=== PATIENT | male | born 1965 | race Caucasian/White ===

== ENCOUNTER 2022-02-01 11:22 | Emergency (ER) | payer OTHER ==
[~2022-02-01] VITALS: Ht 177.8 cm; Wt 95.2 kg
[2022-02-01 14:25] LABS: BASOPHILS ABSOLUTE AUTO 0.12 K/mm3 (0.00-0.23); BASOPHILS PERCENT AUTO 1 % (0-2); Hematocrit 43.1 % (37.0-53.0); LYMPHOCYTES ABSOLUTE AUTO 2.11 K/mm3 (0.84-5.20)
[2022-02-01 14:34] LABS: Albumin, Blood 3.1 g/dL (3.4-5.0); Albumin/Globulin Ratio 0.9 (0.8-1.8); Bilirubin, Total 0.6 mg/dL (0.1-1.0); Bun/Creatinine Ratio 9.8 (12.0-20.0); Calcium, Blood 8.9 mg/dL (8.5-10.1); Creatinine, Blood 0.92 mg/dL (0.60-1.20); Globulin, Blood 3.4 g/dL (2.2-4.0); Potassium, Blood 4.6 mmol/L (3.5-5.5); Total Protein, Blood 6.5 g/dL (6.4-8.2)
[2022-02-01 14:35] LABS: EOSINOPHILS ABSOLUTE AUTO 0.22 K/mm3 (0.00-0.68); EOSINOPHILS PERCENT AUTO 3 % (0-6); Hemoglobin 14.9 g/dL (13.5-17.5); IMMATURE GRAN ABSOLUTE AUTO 0.04 K/mm3 (0.00-0.10); IMMATURE GRAN PERCENT AUTO 1 % (0-1); LYMPHOCYTES PERCENT AUTO 24 % (21-46); MONOCYTES PERCENT AUTO 8 % (4-13); Mean Corpuscular HGB 31.2 pg (26.0-34.0); Mean Corpuscular HGB Conc 34.6 g/dL (31.5-36.5); Mean Corpuscular Volume 90 fL (80-100); NEUTROPHILS ABSOLUTE AUTO 5.46 K/mm3 (1.96-9.15); NEUTROPHILS PERCENT AUTO 63 % (41-73); RDW Coefficient Variation 13.8 % (11.7-14.2); RDW Standard Deviation 45.6 fL (35.1-46.3); Red Blood Cell Count 4.78 M/mm3 (4.30-5.90); White Blood Cell Count 8.65 K/mm3 (4.00-11.30)
[2022-02-01 15:10] LABS: Mean Platelet Volume 10.5 fL (9.1-12.4); Platelet Count 263 K/mm3 (150-400)
[2022-02-01 16:08] LABS: International Normalized Ratio 1.03; Prothrombin Time Results 10.8 Sec (9.7-11.5)
[2022-02-01] MEDS ORDERED: HYDR1TAB94 PO (16:56)
[2022-02-01 17:14] LABS: Influenza A, PCR NEGATIVE (NEGATIVE); Influenza B, PCR NEGATIVE (NEGATIVE); Resp Syncytial Virus, PCR NEGATIVE (NEGATIVE); SARS-Cov-2 (COVID-19) PCR, MMC NEGATIVE (NEGATIVE)
== END 2022-02-01 17:59 | disposition home or self-care (01) ==
LOC: ER 11:22
PROVIDERS: Physician Assistant; Student in an Organized Health Care Education/Training Program
DX: I82.411 Acute embolism and thrombosis of right femoral vein (principal); I71.43 Infrarenal abdominal aortic aneurysm, without rupture; E78.00 Pure hypercholesterolemia, unspecified; I10 Essential (primary) hypertension; Z87.891 Personal history of nicotine dependence
CPT/HCPCS: 0241U; 75635; 80053; 85025; 85610; 93971; J3010; Q9967

== ENCOUNTER 2022-03-18 13:55 | Emergency (ER) | payer OTHER ==
[~2022-03-18] VITALS: Ht 177.8 cm; Wt 94.3 kg
[~2022-03-18 13:55] MED LIST: HYDR1TAB94 PO
[2022-03-18] MEDS ORDERED: OXYC5 PO (15:16)
[2022-03-18] MEDS ORDERED: Aspir 8181 MG PO (15:16)
[2022-03-18] MEDS ORDERED: TRAM50 PO (15:16)
[2022-03-18] MEDS ORDERED: CLOP75 PO (15:16)
== END 2022-03-18 16:30 | disposition home or self-care (01) ==
LOC: ER 13:55
DX: Z48.03 Encounter for change or removal of drains (principal); I10 Essential (primary) hypertension; Z79.82 Long term (current) use of aspirin; Z79.899 Other long term (current) drug therapy; Z95.1 Presence of aortocoronary bypass graft; Z87.891 Personal history of nicotine dependence
CPT/HCPCS: 99282

== ENCOUNTER 2022-03-24 01:20 | Day surgery (SDC) | payer OTHER ==
[~2022-03-24 01:20] MED LIST changes: +Aspir 8181 MG PO; +CLOP75 PO; +OXYC5 PO; +TRAM50 PO
== END 2022-03-25 23:30 | disposition home or self-care (01) ==
LOC: WOUND 01:20
DX: T81.89XA Other complications of procedures, not elsewhere classified, initial encounter (principal); I73.9 Peripheral vascular disease, unspecified; I25.10 Atherosclerotic heart disease of native coronary artery without angina pectoris; D50.0 Iron deficiency anemia secondary to blood loss (chronic); M79.A21 Nontraumatic compartment syndrome of right lower extremity
CPT/HCPCS: G0463

== ENCOUNTER 2022-03-27 00:48 | Day surgery (SDC) | payer OTHER | END 2022-03-27 23:05 | disposition home or self-care (01) | LOC: WOUND 00:48 | DX: I73.9 Peripheral vascular disease, unspecified (principal); I25.10 Atherosclerotic heart disease of native coronary artery without angina pectoris; M79.A21 Nontraumatic compartment syndrome of right lower extremity; D50.0 Iron deficiency anemia secondary to blood loss (chronic) ==

== ENCOUNTER 2022-03-29 00:55 | Day surgery (SDC) | payer OTHER | END 2022-03-29 22:41 | disposition home or self-care (01) | LOC: WOUND 00:55 | DX: I73.9 Peripheral vascular disease, unspecified (principal); I25.10 Atherosclerotic heart disease of native coronary artery without angina pectoris; M79.A21 Nontraumatic compartment syndrome of right lower extremity; D50.0 Iron deficiency anemia secondary to blood loss (chronic) | CPT/HCPCS: A9270 ==

== ENCOUNTER 2022-03-31 00:16 | Day surgery (SDC) | payer OTHER | END 2022-03-31 23:29 | disposition home or self-care (01) | LOC: WOUND 00:16 | DX: S81.801A Unspecified open wound, right lower leg, initial encounter (principal); T81.31XS Disruption of external operation (surgical) wound, not elsewhere classified, sequela; I25.10 Atherosclerotic heart disease of native coronary artery without angina pectoris; M79.A21 Nontraumatic compartment syndrome of right lower extremity; D50.0 Iron deficiency anemia secondary to blood loss (chronic); I87.2 Venous insufficiency (chronic) (peripheral); R77.0 Abnormality of albumin; I73.9 Peripheral vascular disease, unspecified | CPT/HCPCS: A9270 ==

== ENCOUNTER 2022-04-03 09:13 | Day surgery (SDC) | payer OTHER | END 2022-04-03 22:45 | disposition home or self-care (01) | LOC: WOUND 09:13 | DX: I73.9 Peripheral vascular disease, unspecified (principal); I25.10 Atherosclerotic heart disease of native coronary artery without angina pectoris; M79.A21 Nontraumatic compartment syndrome of right lower extremity; D50.0 Iron deficiency anemia secondary to blood loss (chronic); I87.2 Venous insufficiency (chronic) (peripheral); T81.31XS Disruption of external operation (surgical) wound, not elsewhere classified, sequela; S81.801S Unspecified open wound, right lower leg, sequela | CPT/HCPCS: A9270; G0463 ==

== ENCOUNTER 2022-04-05 00:33 | Day surgery (SDC) | payer OTHER | END 2022-04-05 23:07 | disposition home or self-care (01) | LOC: WOUND 00:33 | DX: I73.9 Peripheral vascular disease, unspecified (principal); I25.10 Atherosclerotic heart disease of native coronary artery without angina pectoris; M79.A21 Nontraumatic compartment syndrome of right lower extremity; D50.0 Iron deficiency anemia secondary to blood loss (chronic); T81.31XS Disruption of external operation (surgical) wound, not elsewhere classified, sequela; I87.2 Venous insufficiency (chronic) (peripheral); S81.801S Unspecified open wound, right lower leg, sequela | CPT/HCPCS: A9270; G0463 ==

== ENCOUNTER 2022-04-12 03:50 | Day surgery (SDC) | payer OTHER | END 2022-04-12 23:05 | disposition home or self-care (01) | LOC: WOUND 03:50 | DX: S81.801S Unspecified open wound, right lower leg, sequela (principal); I73.9 Peripheral vascular disease, unspecified; I25.10 Atherosclerotic heart disease of native coronary artery without angina pectoris; M79.A21 Nontraumatic compartment syndrome of right lower extremity; D50.0 Iron deficiency anemia secondary to blood loss (chronic); T81.31XS Disruption of external operation (surgical) wound, not elsewhere classified, sequela; I87.2 Venous insufficiency (chronic) (peripheral); R77.0 Abnormality of albumin ==

== ENCOUNTER 2022-04-14 02:37 | Day surgery (SDC) | payer OTHER | END 2022-04-14 22:58 | disposition home or self-care (01) | LOC: WOUND 02:37 | DX: T81.32XA Disruption of internal operation (surgical) wound, not elsewhere classified, initial encounter (principal); I73.9 Peripheral vascular disease, unspecified; I25.10 Atherosclerotic heart disease of native coronary artery without angina pectoris; D50.0 Iron deficiency anemia secondary to blood loss (chronic); R77.0 Abnormality of albumin; I87.2 Venous insufficiency (chronic) (peripheral); Z95.1 Presence of aortocoronary bypass graft | CPT/HCPCS: A9270 ==

== ENCOUNTER 2022-04-17 02:59 | Day surgery (SDC) | payer OTHER | END 2022-04-17 23:06 | disposition home or self-care (01) | LOC: WOUND 02:59 | DX: T81.31XA Disruption of external operation (surgical) wound, not elsewhere classified, initial encounter (principal); I87.2 Venous insufficiency (chronic) (peripheral); S81.801A Unspecified open wound, right lower leg, initial encounter; I73.9 Peripheral vascular disease, unspecified; I25.10 Atherosclerotic heart disease of native coronary artery without angina pectoris; M79.A21 Nontraumatic compartment syndrome of right lower extremity; D50.0 Iron deficiency anemia secondary to blood loss (chronic); R77.0 Abnormality of albumin | CPT/HCPCS: G0463 ==

== ENCOUNTER 2022-04-19 05:22 | Day surgery (SDC) | payer OTHER | END 2022-04-19 23:01 | disposition home or self-care (01) | LOC: WOUND 05:22 | DX: T81.31XA Disruption of external operation (surgical) wound, not elsewhere classified, initial encounter (principal); I73.9 Peripheral vascular disease, unspecified; I25.10 Atherosclerotic heart disease of native coronary artery without angina pectoris; M79.A21 Nontraumatic compartment syndrome of right lower extremity; D50.0 Iron deficiency anemia secondary to blood loss (chronic); I87.2 Venous insufficiency (chronic) (peripheral); R77.0 Abnormality of albumin | CPT/HCPCS: G0463 ==

== ENCOUNTER 2022-04-21 02:30 | Day surgery (SDC) | payer OTHER | END 2022-04-21 23:44 | disposition home or self-care (01) | LOC: WOUND 02:30 | DX: I73.9 Peripheral vascular disease, unspecified (principal); I25.10 Atherosclerotic heart disease of native coronary artery without angina pectoris; M79.A21 Nontraumatic compartment syndrome of right lower extremity; D50.0 Iron deficiency anemia secondary to blood loss (chronic); T81.31XS Disruption of external operation (surgical) wound, not elsewhere classified, sequela; R77.0 Abnormality of albumin | CPT/HCPCS: G0463 ==

== ENCOUNTER 2022-04-24 01:02 | Day surgery (SDC) | payer OTHER | END 2022-04-24 22:52 | disposition home or self-care (01) | LOC: WOUND 01:02 | DX: I73.9 Peripheral vascular disease, unspecified (principal); I25.10 Atherosclerotic heart disease of native coronary artery without angina pectoris; M79.A21 Nontraumatic compartment syndrome of right lower extremity; D50.0 Iron deficiency anemia secondary to blood loss (chronic); T81.31XS Disruption of external operation (surgical) wound, not elsewhere classified, sequela; R77.0 Abnormality of albumin | CPT/HCPCS: G0463 ==

== ENCOUNTER 2022-04-26 01:33 | Day surgery (SDC) | payer OTHER | END 2022-04-26 22:52 | disposition home or self-care (01) | LOC: WOUND 01:33 | DX: T81.32XA Disruption of internal operation (surgical) wound, not elsewhere classified, initial encounter (principal); I73.9 Peripheral vascular disease, unspecified; I25.10 Atherosclerotic heart disease of native coronary artery without angina pectoris; M79.A21 Nontraumatic compartment syndrome of right lower extremity; D50.0 Iron deficiency anemia secondary to blood loss (chronic); I87.2 Venous insufficiency (chronic) (peripheral) | CPT/HCPCS: A9270; G0463 ==

== ENCOUNTER 2022-04-28 01:46 | Day surgery (SDC) | payer OTHER | END 2022-04-28 22:43 | disposition home or self-care (01) | LOC: WOUND 01:46 | DX: T81.31XA Disruption of external operation (surgical) wound, not elsewhere classified, initial encounter (principal); I73.9 Peripheral vascular disease, unspecified; I25.10 Atherosclerotic heart disease of native coronary artery without angina pectoris; M79.A21 Nontraumatic compartment syndrome of right lower extremity; D50.0 Iron deficiency anemia secondary to blood loss (chronic); I87.2 Venous insufficiency (chronic) (peripheral); S81.801S Unspecified open wound, right lower leg, sequela; R77.0 Abnormality of albumin; X58.XXXA Exposure to other specified factors, initial encounter | CPT/HCPCS: G0463 ==

== ENCOUNTER 2022-05-01 00:10 | Day surgery (SDC) | payer OTHER | END 2022-05-01 22:55 | disposition home or self-care (01) | LOC: WOUND 00:10 | DX: T81.31XA Disruption of external operation (surgical) wound, not elsewhere classified, initial encounter (principal); I73.9 Peripheral vascular disease, unspecified; M79.A21 Nontraumatic compartment syndrome of right lower extremity; D50.0 Iron deficiency anemia secondary to blood loss (chronic); I87.2 Venous insufficiency (chronic) (peripheral); S81.801S Unspecified open wound, right lower leg, sequela; R77.0 Abnormality of albumin | CPT/HCPCS: G0463 ==

== ENCOUNTER 2022-05-05 01:36 | Day surgery (SDC) | payer OTHER | END 2022-05-05 22:36 | disposition home or self-care (01) | LOC: WOUND 01:36 | DX: I87.2 Venous insufficiency (chronic) (peripheral) (principal); L97.212 Non-pressure chronic ulcer of right calf with fat layer exposed; I73.9 Peripheral vascular disease, unspecified; I25.10 Atherosclerotic heart disease of native coronary artery without angina pectoris; M79.A21 Nontraumatic compartment syndrome of right lower extremity; D50.0 Iron deficiency anemia secondary to blood loss (chronic); T81.31XS Disruption of external operation (surgical) wound, not elsewhere classified, sequela; R77.0 Abnormality of albumin; X58.XXXS Exposure to other specified factors, sequela | CPT/HCPCS: G0463 ==

== ENCOUNTER 2022-05-08 00:02 | Day surgery (SDC) | payer OTHER | END 2022-05-08 23:09 | disposition home or self-care (01) | LOC: WOUND 00:02 | DX: L97.212 Non-pressure chronic ulcer of right calf with fat layer exposed (principal); I73.9 Peripheral vascular disease, unspecified; I25.10 Atherosclerotic heart disease of native coronary artery without angina pectoris; M79.A21 Nontraumatic compartment syndrome of right lower extremity; D50.0 Iron deficiency anemia secondary to blood loss (chronic); I87.2 Venous insufficiency (chronic) (peripheral); R77.0 Abnormality of albumin | CPT/HCPCS: G0463 ==

== ENCOUNTER 2022-05-10 00:34 | Day surgery (SDC) | payer OTHER | END 2022-05-10 22:51 | disposition home or self-care (01) | LOC: WOUND 00:34 | DX: T81.31XA Disruption of external operation (surgical) wound, not elsewhere classified, initial encounter (principal); L97.212 Non-pressure chronic ulcer of right calf with fat layer exposed; I73.9 Peripheral vascular disease, unspecified; I25.10 Atherosclerotic heart disease of native coronary artery without angina pectoris; M79.A21 Nontraumatic compartment syndrome of right lower extremity; D50.0 Iron deficiency anemia secondary to blood loss (chronic); I87.2 Venous insufficiency (chronic) (peripheral); R77.0 Abnormality of albumin ==

== ENCOUNTER 2022-05-15 00:21 | Day surgery (SDC) | payer OTHER | END 2022-05-15 22:44 | disposition home or self-care (01) | LOC: WOUND 00:21 | DX: T81.31XA Disruption of external operation (surgical) wound, not elsewhere classified, initial encounter (principal); L97.212 Non-pressure chronic ulcer of right calf with fat layer exposed; I25.10 Atherosclerotic heart disease of native coronary artery without angina pectoris; D50.0 Iron deficiency anemia secondary to blood loss (chronic); I87.2 Venous insufficiency (chronic) (peripheral); R77.0 Abnormality of albumin; M79.A21 Nontraumatic compartment syndrome of right lower extremity | CPT/HCPCS: G0463 ==

== ENCOUNTER 2022-05-19 00:04 | Day surgery (SDC) | payer OTHER | END 2022-05-19 23:07 | disposition home or self-care (01) | LOC: WOUND 00:04 | DX: T81.31XA Disruption of external operation (surgical) wound, not elsewhere classified, initial encounter (principal); L97.212 Non-pressure chronic ulcer of right calf with fat layer exposed; I25.10 Atherosclerotic heart disease of native coronary artery without angina pectoris; M79.A21 Nontraumatic compartment syndrome of right lower extremity; D50.0 Iron deficiency anemia secondary to blood loss (chronic); I87.2 Venous insufficiency (chronic) (peripheral); R77.0 Abnormality of albumin | CPT/HCPCS: A9270 ==

== ENCOUNTER 2022-05-22 00:14 | Day surgery (SDC) | payer OTHER | END 2022-05-22 22:39 | disposition home or self-care (01) | LOC: WOUND 00:14 | DX: L97.212 Non-pressure chronic ulcer of right calf with fat layer exposed (principal); I73.9 Peripheral vascular disease, unspecified; I25.10 Atherosclerotic heart disease of native coronary artery without angina pectoris; M79.A21 Nontraumatic compartment syndrome of right lower extremity; D50.0 Iron deficiency anemia secondary to blood loss (chronic); T81.31XS Disruption of external operation (surgical) wound, not elsewhere classified, sequela; I87.2 Venous insufficiency (chronic) (peripheral); R77.0 Abnormality of albumin | CPT/HCPCS: G0463 ==

== ENCOUNTER 2022-05-24 00:29 | Day surgery (SDC) | payer OTHER | END 2022-05-24 23:27 | disposition home or self-care (01) | LOC: WOUND 00:29 | DX: L97.212 Non-pressure chronic ulcer of right calf with fat layer exposed (principal); I73.9 Peripheral vascular disease, unspecified; I25.10 Atherosclerotic heart disease of native coronary artery without angina pectoris; M79.A21 Nontraumatic compartment syndrome of right lower extremity; D50.0 Iron deficiency anemia secondary to blood loss (chronic); T81.31XS Disruption of external operation (surgical) wound, not elsewhere classified, sequela; I87.2 Venous insufficiency (chronic) (peripheral) | CPT/HCPCS: G0463 ==

== ENCOUNTER 2022-05-26 01:37 | Day surgery (SDC) | payer OTHER | END 2022-05-26 23:08 | disposition home or self-care (01) | LOC: WOUND 01:37 | DX: L97.212 Non-pressure chronic ulcer of right calf with fat layer exposed (principal); I73.9 Peripheral vascular disease, unspecified; I25.10 Atherosclerotic heart disease of native coronary artery without angina pectoris; M79.A21 Nontraumatic compartment syndrome of right lower extremity; D50.0 Iron deficiency anemia secondary to blood loss (chronic); T81.31XS Disruption of external operation (surgical) wound, not elsewhere classified, sequela; I87.2 Venous insufficiency (chronic) (peripheral); R77.0 Abnormality of albumin | CPT/HCPCS: G0463 ==

== ENCOUNTER 2022-05-29 00:43 | Day surgery (SDC) | payer OTHER | END 2022-05-29 23:37 | disposition home or self-care (01) | LOC: WOUND 00:43 | DX: L97.212 Non-pressure chronic ulcer of right calf with fat layer exposed (principal) | CPT/HCPCS: G0463 ==

== ENCOUNTER 2022-05-31 00:29 | Day surgery (SDC) | payer OTHER | END 2022-05-31 22:44 | disposition home or self-care (01) | LOC: WOUND 00:29 | DX: L97.212 Non-pressure chronic ulcer of right calf with fat layer exposed (principal) | CPT/HCPCS: G0463 ==

== ENCOUNTER 2022-06-02 00:16 | Day surgery (SDC) | payer OTHER | END 2022-06-02 22:56 | disposition home or self-care (01) | LOC: WOUND 00:16 | DX: L97.212 Non-pressure chronic ulcer of right calf with fat layer exposed (principal); I73.9 Peripheral vascular disease, unspecified; I25.10 Atherosclerotic heart disease of native coronary artery without angina pectoris; M79.A21 Nontraumatic compartment syndrome of right lower extremity; D50.0 Iron deficiency anemia secondary to blood loss (chronic); T81.31XS Disruption of external operation (surgical) wound, not elsewhere classified, sequela; I87.2 Venous insufficiency (chronic) (peripheral); R77.0 Abnormality of albumin | CPT/HCPCS: G0463 ==

== ENCOUNTER 2022-06-05 00:49 | Day surgery (SDC) | payer OTHER | END 2022-06-05 22:48 | disposition home or self-care (01) | LOC: WOUND 00:49 | DX: L97.212 Non-pressure chronic ulcer of right calf with fat layer exposed (principal); I73.9 Peripheral vascular disease, unspecified; I25.10 Atherosclerotic heart disease of native coronary artery without angina pectoris; M79.A21 Nontraumatic compartment syndrome of right lower extremity; D50.0 Iron deficiency anemia secondary to blood loss (chronic); T81.31XS Disruption of external operation (surgical) wound, not elsewhere classified, sequela; I87.2 Venous insufficiency (chronic) (peripheral) | CPT/HCPCS: G0463 ==

== ENCOUNTER 2022-06-07 02:34 | Day surgery (SDC) | payer OTHER | END 2022-06-07 23:15 | disposition home or self-care (01) | LOC: WOUND 02:34 | DX: L97.212 Non-pressure chronic ulcer of right calf with fat layer exposed (principal); I73.9 Peripheral vascular disease, unspecified; I25.10 Atherosclerotic heart disease of native coronary artery without angina pectoris; M79.A21 Nontraumatic compartment syndrome of right lower extremity; D50.0 Iron deficiency anemia secondary to blood loss (chronic); I87.2 Venous insufficiency (chronic) (peripheral) | CPT/HCPCS: G0463 ==

== ENCOUNTER 2022-06-14 01:56 | Day surgery (SDC) | payer OTHER | END 2022-06-14 22:35 | disposition home or self-care (01) | LOC: WOUND 01:56 | DX: L97.212 Non-pressure chronic ulcer of right calf with fat layer exposed (principal); T81.31XS Disruption of external operation (surgical) wound, not elsewhere classified, sequela; I73.9 Peripheral vascular disease, unspecified; I25.10 Atherosclerotic heart disease of native coronary artery without angina pectoris; M79.A21 Nontraumatic compartment syndrome of right lower extremity; D50.0 Iron deficiency anemia secondary to blood loss (chronic); I87.2 Venous insufficiency (chronic) (peripheral); R70.0 Elevated erythrocyte sedimentation rate; Z95.828 Presence of other vascular implants and grafts; Z95.5 Presence of coronary angioplasty implant and graft | CPT/HCPCS: A9270; G0463 ==

== ENCOUNTER 2022-06-16 01:48 | Day surgery (SDC) | payer OTHER | END 2022-06-16 23:05 | disposition home or self-care (01) | LOC: WOUND 01:48 | DX: L97.212 Non-pressure chronic ulcer of right calf with fat layer exposed (principal); I73.9 Peripheral vascular disease, unspecified; I25.10 Atherosclerotic heart disease of native coronary artery without angina pectoris; M79.A21 Nontraumatic compartment syndrome of right lower extremity; D50.0 Iron deficiency anemia secondary to blood loss (chronic); T81.31XS Disruption of external operation (surgical) wound, not elsewhere classified, sequela; I87.2 Venous insufficiency (chronic) (peripheral); R77.0 Abnormality of albumin | CPT/HCPCS: G0463 ==

== ENCOUNTER 2022-06-21 00:48 | Day surgery (SDC) | payer OTHER | END 2022-06-21 23:01 | disposition home or self-care (01) | LOC: WOUND 00:48 | DX: T81.32XA Disruption of internal operation (surgical) wound, not elsewhere classified, initial encounter (principal); L97.212 Non-pressure chronic ulcer of right calf with fat layer exposed; I73.9 Peripheral vascular disease, unspecified; I25.10 Atherosclerotic heart disease of native coronary artery without angina pectoris; M79.A21 Nontraumatic compartment syndrome of right lower extremity; D50.0 Iron deficiency anemia secondary to blood loss (chronic); I87.2 Venous insufficiency (chronic) (peripheral); R77.0 Abnormality of albumin | CPT/HCPCS: G0463 ==

== ENCOUNTER 2022-06-23 02:19 | Day surgery (SDC) | payer OTHER | END 2022-06-23 22:49 | disposition home or self-care (01) | LOC: WOUND 02:19 | DX: L97.212 Non-pressure chronic ulcer of right calf with fat layer exposed (principal); I73.9 Peripheral vascular disease, unspecified; I25.10 Atherosclerotic heart disease of native coronary artery without angina pectoris; M79.A21 Nontraumatic compartment syndrome of right lower extremity; D50.0 Iron deficiency anemia secondary to blood loss (chronic); T81.31XD Disruption of external operation (surgical) wound, not elsewhere classified, subsequent encounter; Y83.8 Other surgical procedures as the cause of abnormal reaction of the patient, or of later complication, without mention of misadventure at the time of the procedure; I87.2 Venous insufficiency (chronic) (peripheral); R77.0 Abnormality of albumin | CPT/HCPCS: G0463 ==

== ENCOUNTER 2022-06-28 03:41 | Day surgery (SDC) | payer OTHER | END 2022-06-28 22:59 | disposition home or self-care (01) | LOC: WOUND 03:41 | DX: L97.212 Non-pressure chronic ulcer of right calf with fat layer exposed (principal); I73.9 Peripheral vascular disease, unspecified; I25.10 Atherosclerotic heart disease of native coronary artery without angina pectoris; M79.A21 Nontraumatic compartment syndrome of right lower extremity; D50.0 Iron deficiency anemia secondary to blood loss (chronic); T81.31XD Disruption of external operation (surgical) wound, not elsewhere classified, subsequent encounter; I87.2 Venous insufficiency (chronic) (peripheral); R77.0 Abnormality of albumin | CPT/HCPCS: G0463 ==

== ENCOUNTER 2022-06-30 01:39 | Day surgery (SDC) | payer OTHER | END 2022-06-30 22:53 | disposition home or self-care (01) | LOC: WOUND 01:39 | DX: L97.212 Non-pressure chronic ulcer of right calf with fat layer exposed (principal); I73.9 Peripheral vascular disease, unspecified; I25.10 Atherosclerotic heart disease of native coronary artery without angina pectoris; D50.0 Iron deficiency anemia secondary to blood loss (chronic); T81.31XD Disruption of external operation (surgical) wound, not elsewhere classified, subsequent encounter; I87.2 Venous insufficiency (chronic) (peripheral); R77.0 Abnormality of albumin | CPT/HCPCS: G0463 ==

== ENCOUNTER 2022-07-05 02:05 | Day surgery (SDC) | payer OTHER | END 2022-07-05 22:59 | disposition home or self-care (01) | LOC: WOUND 02:05 | DX: L97.212 Non-pressure chronic ulcer of right calf with fat layer exposed (principal); T81.31XS Disruption of external operation (surgical) wound, not elsewhere classified, sequela; I73.9 Peripheral vascular disease, unspecified; I25.10 Atherosclerotic heart disease of native coronary artery without angina pectoris; M79.A21 Nontraumatic compartment syndrome of right lower extremity; D50.0 Iron deficiency anemia secondary to blood loss (chronic); I87.2 Venous insufficiency (chronic) (peripheral); R77.0 Abnormality of albumin | CPT/HCPCS: G0463 ==

== ENCOUNTER 2022-07-12 02:24 | Day surgery (SDC) | payer OTHER | END 2022-07-12 22:42 | disposition home or self-care (01) | LOC: WOUND 02:24 | DX: T81.82XA Emphysema (subcutaneous) resulting from a procedure, initial encounter (principal); I73.9 Peripheral vascular disease, unspecified; L97.212 Non-pressure chronic ulcer of right calf with fat layer exposed; I25.10 Atherosclerotic heart disease of native coronary artery without angina pectoris; M79.A21 Nontraumatic compartment syndrome of right lower extremity; D50.0 Iron deficiency anemia secondary to blood loss (chronic); I87.2 Venous insufficiency (chronic) (peripheral) | CPT/HCPCS: G0463 ==

== ENCOUNTER 2022-07-20 01:11 | Day surgery (SDC) | payer OTHER | END 2022-07-20 22:40 | disposition home or self-care (01) | LOC: WOUND 01:11 | DX: T81.31XS Disruption of external operation (surgical) wound, not elsewhere classified, sequela (principal); L97.212 Non-pressure chronic ulcer of right calf with fat layer exposed; I73.9 Peripheral vascular disease, unspecified; I25.10 Atherosclerotic heart disease of native coronary artery without angina pectoris; M79.A21 Nontraumatic compartment syndrome of right lower extremity; D50.0 Iron deficiency anemia secondary to blood loss (chronic); I87.2 Venous insufficiency (chronic) (peripheral); R77.0 Abnormality of albumin | CPT/HCPCS: G0463 ==

== ENCOUNTER 2022-07-27 02:50 | Day surgery (SDC) | payer OTHER | END 2022-07-27 23:19 | disposition home or self-care (01) | LOC: WOUND 02:50 | DX: T81.31XS Disruption of external operation (surgical) wound, not elsewhere classified, sequela (principal); L97.212 Non-pressure chronic ulcer of right calf with fat layer exposed; I73.9 Peripheral vascular disease, unspecified; I25.10 Atherosclerotic heart disease of native coronary artery without angina pectoris; M79.A21 Nontraumatic compartment syndrome of right lower extremity; D50.0 Iron deficiency anemia secondary to blood loss (chronic); I87.2 Venous insufficiency (chronic) (peripheral); R77.0 Abnormality of albumin | CPT/HCPCS: G0463 ==

== ENCOUNTER 2024-12-03 14:43 | Observation (INO) | payer OTHER ==
[~2024-12-03] VITALS: Ht 180.3 cm; Wt 110.0 kg
[2024-12-03 15:25] LABS: BASOPHILS ABSOLUTE AUTO 0.11 K/mm3 (0.00-0.23); BASOPHILS PERCENT AUTO 1 % (0-2); EOSINOPHILS ABSOLUTE AUTO 0.62 K/mm3 (0.00-0.68); EOSINOPHILS PERCENT AUTO 6 % (0-6); Hematocrit 39.0 % (37.0-53.0); Hemoglobin 13.3 g/dL (13.5-17.5); IMMATURE GRAN ABSOLUTE AUTO 0.04 K/mm3 (0.00-0.10); IMMATURE GRAN PERCENT AUTO 0 % (0-1); LYMPHOCYTES ABSOLUTE AUTO 2.81 K/mm3 (0.84-5.20); LYMPHOCYTES PERCENT AUTO 29 % (21-46); MONOCYTES ABSOLUTE AUTO 0.57 K/mm3 (0.16-1.47); MONOCYTES PERCENT AUTO 6 % (4-13); Mean Corpuscular HGB Conc 34.1 g/dL (31.5-36.5); Mean Corpuscular Volume 95 fL (80-100); NEUTROPHILS ABSOLUTE AUTO 5.48 K/mm3 (1.96-9.15); NEUTROPHILS PERCENT AUTO 57 % (41-73); NRBC ABSOLUTE 0.00 K/mm3 (0.00-0.02); NRBC Auto 0.0 /100 WBC (0.0-0.2); Platelet Count 278 K/mm3 (150-400); RDW Coefficient Variation 13.8 % (11.7-14.2); RDW Standard Deviation 48.4 fL (35.1-46.3)
[2024-12-03 16:03] LABS: Alanine Aminotransfer (ALT/SGP 22.0 U/L (12-78); Albumin, Blood 3.2 g/dL (3.4-5.0); Albumin/Globulin Ratio 1.0 (0.8-1.8); Anion Gap 12.0 mmol/L (3-11); Aspartate Aminotrans (AST/SGOT 20.0 U/L (12-37); Bilirubin, Total 0.4 mg/dL (0.1-1.0); Blood Urea Nitrogen 9.0 mg/dL (8-24); CO2, Blood 23.0 mmol/L (21-32); Calcium, Blood 8.4 mg/dL (8.5-10.1); Chloride, Blood 106.0 mmol/L (98-108); Creatinine, Blood 1.0 mg/dL (0.60-1.20); Globulin, Blood 3.2 g/dL (2.2-4.0); Glucose, Blood 194.0 mg/dL (70-99); Potassium, Blood 3.3 mmol/L (3.5-5.5); Sodium, Blood 138.0 mmol/L (136-145); Total Protein, Blood 6.4 g/dL (6.4-8.2)
[2024-12-03] MEDS ORDERED: Albuterol 2.5 MG/3 ML VIAL INH SCH (16:55)
[2024-12-03 18:56] LABS: Influenza A, PCR NEGATIVE (NEGATIVE); Influenza B, PCR NEGATIVE (NEGATIVE); Resp Syncytial Virus, PCR NEGATIVE (NEGATIVE); SARS-Cov-2 (COVID-19) PCR, MMC NEGATIVE (NEGATIVE)
[2024-12-03] MEDS ORDERED: Diltiazem HCl 5 MG / ML 5ML Vial IV ONE (20:00)
[2024-12-03] MEDS ORDERED: Metoprolol Tartrate 1 MG/ML 5 ML VIAL IV ONE (21:00)
[2024-12-03] MEDS ORDERED: Metoprolol Tartrate 1 MG/ML 5 ML VIAL IV PRN (21:00)
[2024-12-03] MEDS ORDERED: Ondansetron HCl 2 MG / ML 2ML Vial IV PRN (21:05)
[2024-12-03 23:15] LABS: U Amphetamine Screen Not Detected; U Barbituate Screen Not Detected; U Benzodiazapine Screen Not Detected; U Buprenorphine Screen Not Detected; U Cannabinoids Screen Not Detected; U Cocaine Screen Not Detected; U Methadone Screen Not Detected; U Methamphetamine Screen Not Detected; U Opiates Screen Not Detected; U Oxycodone Screen Not Detected; U Phencyclidine Screen Not Detected
[2024-12-04 00:46] VITALS: BP 136/95
[2024-12-04] MEDS ORDERED: Tessalon200 MG PO (01:11)
[2024-12-04] MEDS ORDERED: NICODERM CQ1 EA25 TOP (01:11)
[2024-12-04] MEDS ORDERED: TRAZ150T57 PO (01:12)
[2024-12-04] MEDS ORDERED: FLUTICASONE-SA1 EAC9 INH (01:19)
[2024-12-04] MEDS ORDERED: NEURONTIN300 MG PO (01:20)
[2024-12-04] MEDS ORDERED: SPIRIVA RESPIMAT4 G3 INH (01:22)
[2024-12-04] MEDS ORDERED: PROAIR RESPICL90 MCG INH (01:23)
[2024-12-04 03:41] LABS: Hematocrit 41.2 % (37.0-53.0); Hemoglobin 13.8 g/dL (13.5-17.5); Mean Corpuscular HGB Conc 33.5 g/dL (31.5-36.5); Mean Corpuscular Volume 96 fL (80-100); NRBC ABSOLUTE 0.00 K/mm3 (0.00-0.02); NRBC Auto 0.0 /100 WBC (0.0-0.2); Platelet Count 283 K/mm3 (150-400); RDW Coefficient Variation 14.0 % (11.7-14.2); RDW Standard Deviation 49.1 fL (35.1-46.3)
[2024-12-04 04:03] LABS: Prothrombin Time Results 11.4 Sec (9.7-11.5)
[2024-12-04 04:34] VITALS: BP 124/98
--- NOTE | 2024-12-04 05:29 | NUR ---
SHIFT SUMMARY: PATIENT CAME UP FROM ER TODAY AROUND 0040. HE IS A&OX4. TELE SHOWS AFIB @ 90'S-110'S BPM. PATIENT HAS DENIED PAIN SINCE ARRIVAL TO THE UNIT. IV METOPROLOL WAS GIVEN DUE TO HR SUSTAINING >120 BPM PER ORDERS. WHEN PATIENT WAS SUSTAINING >120 BPM HE DENIED CHEST PAIN, PALPITATIONS, OR PRESSURE. PATIENT IS CURRENTLY ON ROOM AIR WITH >90% OXYGEN SATS, AND IS ALSO NOTED TO HAVE AN OCCASIONAL COUGH WITH WHITE PHLEGM OUTPUT INTERMITTENTLY. T.E.D. STOCKINGS WERE PLACED ON BOTH PATIENTS LEGS PER ORDERS WELL. HE DENIES NUMBNESS OR TINGLING THROUGHOUT ALL EXTREMITIES. +1 EDEMA NOTED ON RIGHT LEG. PATIENT INDEP. USES URINAL AT BEDSIDE. HE IS TOLERATING PO INTAKE AND IS VOIDING. PATIENT IS LAYING IN BED WITH CALL LIGHT IN REACH. CALLS APPROPRIATELY AND IS ABLE TO MAKE NEEDS KNOWN. ECHO IS ORDERED FOR LATER TODAY.
[2024-12-04 06:41] LABS: Alanine Aminotransfer (ALT/SGP 25.0 U/L (12-78); Albumin, Blood 3.3 g/dL (3.4-5.0); Albumin/Globulin Ratio 1.0 (0.8-1.8); Anion Gap 10.0 mmol/L (3-11); Aspartate Aminotrans (AST/SGOT 18.0 U/L (12-37); Bilirubin, Total 0.4 mg/dL (0.1-1.0); Blood Urea Nitrogen 16.0 mg/dL (8-24); CO2, Blood 23.0 mmol/L (21-32); Calcium, Blood 8.6 mg/dL (8.5-10.1); Chloride, Blood 107.0 mmol/L (98-108); Creatinine, Blood 0.97 mg/dL (0.60-1.20); Globulin, Blood 3.4 g/dL (2.2-4.0); Glucose, Blood 185.0 mg/dL (70-99); Magnesium, Blood 2.0 mg/dL (1.6-2.4); Potassium, Blood 4.4 mmol/L (3.5-5.5); Sodium, Blood 136.0 mmol/L (136-145); Total Protein, Blood 6.7 g/dL (6.4-8.2)
[2024-12-04 07:24] VITALS: BP 140/114
[2024-12-04] MEDS ORDERED: Enoxaparin 40 MG/0.4 ML SYR SC SCH (09:00)
[2024-12-04 12:00] VITALS: BP 146/110
--- NOTE | 2024-12-04 12:26 | NUR ---
Update / Call to Pt A&O x4. Independent in rm. VSS. Spo2 > 92% on RA. Monitor showing afib, HR 100-130. MD w/ increase in scheduled PO metoprolol succ dose this AM. Pt HR still elevated after administration, notified & w/ new order for additional one time order of 25mg po metoprolol succ, see order. Echo done in pt rm.
[2024-12-04] MEDS ORDERED: METO100ER PO (14:47)
[2024-12-04] MEDS ORDERED: ELIQUIS5 M2 PO (14:47)
[2024-12-04] MEDS ORDERED: DOXY100 PO (14:48)
[2024-12-04] MEDS ORDERED: GUAI600T33 PO (14:48)
[2024-12-04 15:20] VITALS: BP 141/108
--- NOTE | 2024-12-04 16:26 | NUR ---
Discharge Home Pt HR 100-120s after additional PO metoprolol per MD order. Pt denying any symptoms w/ elevated HR. Pt reporting feeling "perfectly fine." Pt reporting continued desire to discharge home. w/ order for discharge home w/ increased home metoprolol dose & to follow up w/ PCP regarding echo results. Discharge instructions gone over w/ pt & sent home w/ pt. PIVs removed. Pt taken out in wheelchair w/ belongings @ approx 1545.
--- NOTE | 2024-12-04 16:27 | NUR ---
DISCHARGE NOTE VITAL SIGNS REMAIN THE SAME; PIV PULLED. EDUCATED PT ON DISCHARGE INSTRUCTIONS, AFIB/MEDICATIONS, ALCOHOL/SMOKING CESSATION, AND FOLLOW UP APPOINTMENTS.
== END 2024-12-04 15:45 | disposition home or self-care (01) ==
LOC: ER 14:43 → PCU 14:44 → ER 14:44 → ERHOLD 14:44 → PCU 12-04 00:38
PROVIDERS: Emergency Medicine; Nurse Practitioner Acute Care; Student in an Organized Health Care Education/Training Program; ADMIT Internal Medicine
DX: I48.91 Unspecified atrial fibrillation (principal); J44.9 Chronic obstructive pulmonary disease, unspecified; I25.10 Atherosclerotic heart disease of native coronary artery without angina pectoris; G47.33 Obstructive sleep apnea (adult) (pediatric); E78.5 Hyperlipidemia, unspecified; F17.290 Nicotine dependence, other tobacco product, uncomplicated; E66.01 Morbid (severe) obesity due to excess calories; Z95.1 Presence of aortocoronary bypass graft
CPT/HCPCS: 36415; 71260; 80053; 83735; 83880; 84443; 84484; 85025; 85027; 85610; 87637; 93005; 93010; 93306; 93971; 96372; 96374-59; 96375; 96376; 99285-25; A9270; G0378; J1650; J2919; Q9967

== ENCOUNTER 2024-12-10 19:14 | Observation (INO) | payer OTHER ==
[~2024-12-10] VITALS: Ht 177.8 cm; Wt 108.9 kg
[~2024-12-10 19:14] MED LIST changes: +DOXY100 PO; +ELIQUIS5 M2 PO; +FLUTICASONE-SA1 EAC9 INH; +GUAI600T33 PO; +METO100ER PO; +NEURONTIN300 MG PO; +NICODERM CQ1 EA25 TOP; +PROAIR RESPICL90 MCG INH; +SPIRIVA RESPIMAT4 G3 INH; +TRAZ150T57 PO; +Tessalon200 MG PO
[2024-12-10] MEDS ORDERED: Albuterol 2.5 MG/3 ML VIAL INH SCH ×2 (19:50→23:25)
[2024-12-10] MEDS ORDERED: Ipratropium Bromide INH 0.02% 0.5 mg/2.5ML Vial INH SCH ×2 (19:50→23:25)
[2024-12-10 20:26] LABS: BASOPHILS ABSOLUTE AUTO 0.15 K/mm3 (0.00-0.23); BASOPHILS PERCENT AUTO 1 % (0-2); EOSINOPHILS ABSOLUTE AUTO 1.38 K/mm3 (0.00-0.68); EOSINOPHILS PERCENT AUTO 12 % (0-6); Hematocrit 43.0 % (37.0-53.0); Hemoglobin 14.5 g/dL (13.5-17.5); IMMATURE GRAN ABSOLUTE AUTO 0.06 K/mm3 (0.00-0.10); IMMATURE GRAN PERCENT AUTO 1 % (0-1); LYMPHOCYTES ABSOLUTE AUTO 3.14 K/mm3 (0.84-5.20); LYMPHOCYTES PERCENT AUTO 28 % (21-46); MONOCYTES ABSOLUTE AUTO 0.74 K/mm3 (0.16-1.47); MONOCYTES PERCENT AUTO 7 % (4-13); Mean Corpuscular HGB Conc 33.7 g/dL (31.5-36.5); Mean Corpuscular Volume 98 fL (80-100); NEUTROPHILS ABSOLUTE AUTO 5.76 K/mm3 (1.96-9.15); NEUTROPHILS PERCENT AUTO 51 % (41-73); NRBC ABSOLUTE 0.00 K/mm3 (0.00-0.02); NRBC Auto 0.0 /100 WBC (0.0-0.2); Platelet Count 352 K/mm3 (150-400); RDW Coefficient Variation 13.9 % (11.7-14.2); RDW Standard Deviation 50.0 fL (35.1-46.3)
[2024-12-10 20:56] LABS: Alanine Aminotransfer (ALT/SGP 39.0 U/L (12-78); Albumin, Blood 3.5 g/dL (3.4-5.0); Albumin/Globulin Ratio 1.2 (0.8-1.8); Anion Gap 9.0 mmol/L (3-11); Aspartate Aminotrans (AST/SGOT 24.0 U/L (12-37); Bilirubin, Total 0.4 mg/dL (0.1-1.0); Blood Urea Nitrogen 15.0 mg/dL (8-24); CO2, Blood 24.0 mmol/L (21-32); Calcium, Blood 8.5 mg/dL (8.5-10.1); Chloride, Blood 109.0 mmol/L (98-108); Creatinine, Blood 1.26 mg/dL (0.60-1.20); Globulin, Blood 2.9 g/dL (2.2-4.0); Glucose, Blood 101.0 mg/dL (70-99); Potassium, Blood 4.4 mmol/L (3.5-5.5); Sodium, Blood 138.0 mmol/L (136-145); Total Protein, Blood 6.4 g/dL (6.4-8.2)
[2024-12-11] MEDS ORDERED: NS 1,000 ML IV SCH (01:35)
[2024-12-11] MEDS ORDERED: Albuterol 2.5 MG/3 ML VIAL INH SCH (01:40)
[2024-12-11 01:52] LABS: Influenza A, PCR NEGATIVE (NEGATIVE); Influenza B, PCR NEGATIVE (NEGATIVE); Resp Syncytial Virus, PCR NEGATIVE (NEGATIVE); SARS-Cov-2 (COVID-19) PCR, MMC NEGATIVE (NEGATIVE)
[2024-12-11 02:06] LABS: pH Blood Venous 7.35 (7.34-7.37)
[2024-12-11] MEDS ORDERED: Ondansetron HCl 2 MG / ML 2ML Vial IV PRN (02:30)
[2024-12-11] MEDS ORDERED: Ipratropium/Albuterol SulF 2.5-0.5MG/3 ML Amp INH SCH (02:30)
[2024-12-11 06:57] LABS: BASOPHILS ABSOLUTE AUTO 0.06 K/mm3 (0.00-0.23); BASOPHILS PERCENT AUTO 1 % (0-2); EOSINOPHILS ABSOLUTE AUTO 0.05 K/mm3 (0.00-0.68); EOSINOPHILS PERCENT AUTO 0 % (0-6); Hematocrit 41.2 % (37.0-53.0); Hemoglobin 13.3 g/dL (13.5-17.5); IMMATURE GRAN ABSOLUTE AUTO 0.10 K/mm3 (0.00-0.10); IMMATURE GRAN PERCENT AUTO 1 % (0-1); LYMPHOCYTES ABSOLUTE AUTO 0.81 K/mm3 (0.84-5.20); LYMPHOCYTES PERCENT AUTO 6 % (21-46); MONOCYTES ABSOLUTE AUTO 0.05 K/mm3 (0.16-1.47); MONOCYTES PERCENT AUTO 0 % (4-13); Mean Corpuscular HGB Conc 32.3 g/dL (31.5-36.5); Mean Corpuscular Volume 98 fL (80-100); NEUTROPHILS ABSOLUTE AUTO 12.19 K/mm3 (1.96-9.15); NEUTROPHILS PERCENT AUTO 92 % (41-73); NRBC ABSOLUTE 0.00 K/mm3 (0.00-0.02); NRBC Auto 0.0 /100 WBC (0.0-0.2); Platelet Count 321 K/mm3 (150-400); RDW Coefficient Variation 14.1 % (11.7-14.2); RDW Standard Deviation 51.1 fL (35.1-46.3)
[2024-12-11 07:30] LABS: Alanine Aminotransfer (ALT/SGP 38.0 U/L (12-78); Albumin, Blood 3.3 g/dL (3.4-5.0); Albumin/Globulin Ratio 1.1 (0.8-1.8); Anion Gap 10.0 mmol/L (3-11); Aspartate Aminotrans (AST/SGOT 17.0 U/L (12-37); Bilirubin, Total 0.3 mg/dL (0.1-1.0); Blood Urea Nitrogen 17.0 mg/dL (8-24); CO2, Blood 25.0 mmol/L (21-32); Calcium, Blood 8.2 mg/dL (8.5-10.1); Chloride, Blood 107.0 mmol/L (98-108); Creatinine, Blood 1.08 mg/dL (0.60-1.20); Globulin, Blood 2.9 g/dL (2.2-4.0); Glucose, Blood 188.0 mg/dL (70-99); Magnesium, Blood 1.9 mg/dL (1.6-2.4); Potassium, Blood 3.8 mmol/L (3.5-5.5); Sodium, Blood 138.0 mmol/L (136-145); Total Protein, Blood 6.2 g/dL (6.4-8.2)
[2024-12-11 08:12] LABS: pH Blood Venous 7.34 (7.34-7.37)
[2024-12-11 13:27] VITALS: BP 140/105
[2024-12-11] MEDS ORDERED: PRED20 PO (14:36)
== END 2024-12-11 15:00 | disposition home or self-care (01) ==
LOC: ER 19:14 → MEDS 19:15 → ER 12-11 03:03 → MEDS 12-11 03:03
PROVIDERS: Emergency Medicine; Physician Assistant; ADMIT Student in an Organized Health Care Education/Training Program
DX: J44.1 Chronic obstructive pulmonary disease with (acute) exacerbation (principal); J96.01 Acute respiratory failure with hypoxia; I25.10 Atherosclerotic heart disease of native coronary artery without angina pectoris; N17.9 Acute kidney failure, unspecified; E78.5 Hyperlipidemia, unspecified; G47.33 Obstructive sleep apnea (adult) (pediatric); I48.0 Paroxysmal atrial fibrillation; F17.290 Nicotine dependence, other tobacco product, uncomplicated; Z66 Do not resuscitate; Z79.82 Long term (current) use of aspirin; Z79.899 Other long term (current) drug therapy; Z79.01 Long term (current) use of anticoagulants
CPT/HCPCS: 71046; 80053; 82803; 83735; 83880; 84484; 85025; 87637; 93005; 93010; 96374; 99285-25; A9270; J2919; J7030

== ENCOUNTER 2024-12-24 13:16 | Inpatient (IN) | payer OTHER ==
[~2024-12-24] VITALS: Ht 177.8 cm; Wt 118.0 kg
[~2024-12-24 13:16] MED LIST changes: +PRED20 PO
[2024-12-24 13:47] LABS: BASOPHILS ABSOLUTE AUTO 0.12 K/mm3 (0.00-0.23); BASOPHILS PERCENT AUTO 1 % (0-2); EOSINOPHILS ABSOLUTE AUTO 0.82 K/mm3 (0.00-0.68); EOSINOPHILS PERCENT AUTO 7 % (0-6); Hematocrit 40.4 % (37.0-53.0); Hemoglobin 13.6 g/dL (13.5-17.5); IMMATURE GRAN ABSOLUTE AUTO 0.03 K/mm3 (0.00-0.10); IMMATURE GRAN PERCENT AUTO 0 % (0-1); LYMPHOCYTES ABSOLUTE AUTO 2.32 K/mm3 (0.84-5.20); LYMPHOCYTES PERCENT AUTO 21 % (21-46); MONOCYTES ABSOLUTE AUTO 0.73 K/mm3 (0.16-1.47); MONOCYTES PERCENT AUTO 7 % (4-13); Mean Corpuscular HGB Conc 33.7 g/dL (31.5-36.5); Mean Corpuscular Volume 98 fL (80-100); NEUTROPHILS ABSOLUTE AUTO 7.00 K/mm3 (1.96-9.15); NEUTROPHILS PERCENT AUTO 64 % (41-73); NRBC ABSOLUTE 0.00 K/mm3 (0.00-0.02); NRBC Auto 0.0 /100 WBC (0.0-0.2); Platelet Count 263 K/mm3 (150-400); RDW Coefficient Variation 14.5 % (11.7-14.2); RDW Standard Deviation 51.9 fL (35.1-46.3)
[2024-12-24 14:12] LABS: Ethanol (Alcohol), Blood, Med 93.0 mg/dL
[2024-12-24 14:35] LABS: Alanine Aminotransfer (ALT/SGP 52.0 U/L (12-78); Albumin, Blood 3.3 g/dL (3.4-5.0); Albumin/Globulin Ratio 1.0 (0.8-1.8); Anion Gap 10.0 mmol/L (3-11); Aspartate Aminotrans (AST/SGOT 48.0 U/L (12-37); Bilirubin, Total 0.9 mg/dL (0.1-1.0); Blood Urea Nitrogen 13.0 mg/dL (8-24); CO2, Blood 23.0 mmol/L (21-32); Calcium, Blood 8.8 mg/dL (8.5-10.1); Chloride, Blood 108.0 mmol/L (98-108); Creatinine, Blood 1.0 mg/dL (0.60-1.20); Globulin, Blood 3.3 g/dL (2.2-4.0); Glucose, Blood 182.0 mg/dL (70-99); Sodium, Blood 136.0 mmol/L (136-145); Total Protein, Blood 6.6 g/dL (6.4-8.2)
[2024-12-24 14:36] LABS: Potassium, Blood 5.0 mmol/L (3.5-5.5)
[2024-12-24] MEDS ORDERED: LORazepam 2 MG/ML 1ML Injection IV PRN (17:05)
[2024-12-24] MEDS ORDERED: Albuterol 2.5 MG/3 ML VIAL INH PRN (17:05)
[2024-12-24] MEDS ORDERED: FLU VACC TS2025-26(6MOS UP)/PF 45 MCG/0.5 ML SYRINGE IM SCH (17:10)
[2024-12-24] MEDS ORDERED: Ipratropium/Albuterol SulF 2.5-0.5MG/3 ML Amp INH SCH (17:10)
[2024-12-24] MEDS ORDERED: Formoterol/Mometasone MDI 5/200 mcg 13 GM INH SCH (17:15)
[2024-12-24] MEDS ORDERED: Folic Acid 1 MG TAB PO SCH (18:00)
[2024-12-24 18:43] VITALS: BP 120/106
--- NOTE | 2024-12-24 18:44 | NUR ---
ADMIT NOTE- TELEPHONE REPORT COMPLETED WITH ED RN ESTEVAN. PER REPORT THE PT RECIEVED 40MG IV LASIX FROM PRIOR ED RN. PT RECIEVED IV LASIX PER EMAR OT DOSE AT AROUND 1600. CALLED DR SLADE TO CLARIFY, NO ANSWER, LEFT A VOICEMAIL. PT ARRIVED ON MEDICAL FLOOR AT SHIFT CHANGE. HE HAS ORDER FOR CPAP RT NOTIFIED. SHABANA HOSE IN THE ROOM BUT NOT PLACED PRIOR TO 2 RN SKIN CHECK. PT IS A DRINKER AND STILL UNDER THE INFLUENCE PER REPORT. PT ALERT, ORIENTED AND INDEPENDENT IN THE ROOM AT THIS TIME CIWAS ORDERED. PT IS A SMOKER. IV STEROIDS ORDERED, BUT NOT GIVEN YET HE JUST ARRIVED AFTER START OF SHIFT CHANGE.
[2024-12-24] MEDS ORDERED: ZYRTEC10 M2 PO (19:04)
[2024-12-24] MEDS ORDERED: Mobic15 MG PO (19:04)
[2024-12-24] MEDS ORDERED: Naltrexone HCl50 MG PO (19:04)
[2024-12-24] MEDS ORDERED: VITAMIN D5000 UNIT PO (19:04)
[2024-12-24] MEDS ORDERED: ATOR40TA PO (19:04)
[2024-12-24] MEDS ORDERED: Aspir 8181 MG PO (19:04)
[2024-12-24 19:59] VITALS: BP 140/96
--- NOTE | 2024-12-24 23:12 | NUR ---
PAGED INDIRA SINHA PER PT REQUEST, PT REQUESTED CODE STATUS CHANGE TO FULL CODE WELL HOME MED (NOC 150MG TRAZODONE)
[2024-12-25] VITALS (17 sets, daily range): BP systolic 104–150; BP diastolic 81–107
--- NOTE | 2024-12-25 05:04 | NUR ---
Educated pt regarding recent diagnosis of New Onset CHF. Discussed importance of wearing CPAP at night as his O2 sats dropped during the night as he was sleeping. Pt has not had any signs of withdraw and has been pleasant this evening.
[2024-12-25 06:11] LABS: Hematocrit 42.8 % (37.0-53.0); Hemoglobin 14.3 g/dL (13.5-17.5); Mean Corpuscular HGB Conc 33.4 g/dL (31.5-36.5); Mean Corpuscular Volume 97 fL (80-100); NRBC ABSOLUTE 0.00 K/mm3 (0.00-0.02); NRBC Auto 0.0 /100 WBC (0.0-0.2); Platelet Count 282 K/mm3 (150-400); RDW Coefficient Variation 14.2 % (11.7-14.2); RDW Standard Deviation 51.6 fL (35.1-46.3)
[2024-12-25 06:49] LABS: Alanine Aminotransfer (ALT/SGP 44.0 U/L (12-78); Albumin, Blood 3.5 g/dL (3.4-5.0); Albumin/Globulin Ratio 1.1 (0.8-1.8); Anion Gap 8.0 mmol/L (3-11); Aspartate Aminotrans (AST/SGOT 16.0 U/L (12-37); Bilirubin, Total 0.7 mg/dL (0.1-1.0); Blood Urea Nitrogen 14.0 mg/dL (8-24); CO2, Blood 27.0 mmol/L (21-32); Calcium, Blood 8.5 mg/dL (8.5-10.1); Chloride, Blood 106.0 mmol/L (98-108); Creatinine, Blood 1.09 mg/dL (0.60-1.20); Globulin, Blood 3.1 g/dL (2.2-4.0); Glucose, Blood 172.0 mg/dL (70-99); Magnesium, Blood 2.1 mg/dL (1.6-2.4); Phosphorus, Blood 2.4 mg/dL (2.5-4.9); Potassium, Blood 4.0 mmol/L (3.5-5.5); Sodium, Blood 137.0 mmol/L (136-145); Thyroid Stimulating Hormone 0.298 uIU/mL (0.360-4.800); Total Protein, Blood 6.6 g/dL (6.4-8.2)
[2024-12-25] MEDS ORDERED: Potassium Phosphate Dibasic 20 MM in Dextrose 5% 500 ML IV STA (08:46)
[2024-12-25] MEDS ORDERED: Cholecalciferol 1000 Unit Tablet (=25MCG) PO SCH (09:00)
[2024-12-25] MEDS ORDERED: Metoprolol Tartrate 1 MG/ML 5 ML VIAL IV STA (11:09)
--- NOTE | 2024-12-25 11:41 | NUR ---
NOTE PHOSPHORUS IS 2.4. DR. SLADE ORDERED POTASSIUM PHOS, INFUSING ORDERED ONE TIME LOPRESSOR, PT ON TELE. TELE REPORTED AFLUTTER 128. PT BLOOD PRESSURE IS 131/89. THIS RN GAVE LOPRESSOR AND NOTIFIED TELE. POST MED GIVEN PT HR IS 118. PT REMAINS ON TELE. PT REPORTS ANXIETY. NO CHEST PAIN. IMPROVED SOB. PT IN BED , BED IN LOWEST POSITION, CALL LIGHT IN REACH. ECHO COMPLETED. WHEN ASSESSING WITHDRAL SYMPTOMS, PT REPORTS "HAVE NONE, YEARS AGO WHEN WENT THROUGH WITHDRAWL ONCE HAD TREMORS, DOES NOT HAVE TREMORS NOW, I DONT DRINK LIKE I USED TO.
[2024-12-25] MEDS ORDERED: Digoxin 0.5 MG in NS 8 ML IV ONE (12:15)
[2024-12-25] MEDS ORDERED: Amiodarone HCl 50 MG / ML 3 ML Amp IV ONE (13:32)
[2024-12-25] MEDS ORDERED: Etomidate 2MG / ML 10ML Vial IV ONE (15:59)
[2024-12-25] MEDS ORDERED: Propofol 10mg/ml 20 ml Vial (Procedural) IV ONE (15:59)
--- NOTE | 2024-12-25 16:39 | NUR ---
Pt. is awake and sittin up on the side of his bed when he welcomes my visit. Pt. is pleasant. Facilitated a lengthy life review and listened with interest and an engqaged presence. Pt. verbalized that he was a man of jessa so matters of jessa and belief were considered. Pt. displayed eivdence of trust and engagement and a measure of trust is established. Prayed wqith the Pt. Pt. verbalized gratitude for the spiritual care visit and welcomed this sports cartoonist to return.
[2024-12-25] MEDS ORDERED: Amiodarone HCl 450 MG in NS 250 ML IV SCH (17:45)
[2024-12-25 18:12] LABS: Prothrombin Time Results 12.6 Sec (9.7-11.5)
[2024-12-25 18:21] LABS: Alanine Aminotransfer (ALT/SGP 43.0 U/L (12-78); Albumin, Blood 3.7 g/dL (3.4-5.0); Albumin/Globulin Ratio 1.2 (0.8-1.8); Anion Gap 11.0 mmol/L (3-11); Aspartate Aminotrans (AST/SGOT 17.0 U/L (12-37); Bilirubin, Total 0.7 mg/dL (0.1-1.0); Blood Urea Nitrogen 19.0 mg/dL (8-24); CO2, Blood 27.0 mmol/L (21-32); Calcium, Blood 8.6 mg/dL (8.5-10.1); Chloride, Blood 103.0 mmol/L (98-108); Creatinine, Blood 1.31 mg/dL (0.60-1.20); Globulin, Blood 3.0 g/dL (2.2-4.0); Glucose, Blood 180.0 mg/dL (70-99); Magnesium, Blood 1.9 mg/dL (1.6-2.4); Potassium, Blood 3.8 mmol/L (3.5-5.5); Sodium, Blood 137.0 mmol/L (136-145); Total Protein, Blood 6.7 g/dL (6.4-8.2)
--- NOTE | 2024-12-25 18:24 | NUR ---
NOTE THIS RN ATTEMPTED TO CALL SAILAJA. MOM. (NEXT OF KIN) NOTIFIED ABOUT UPDATE
--- NOTE | 2024-12-25 18:31 | NUR ---
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 On arrival to unit, HR 120s, atrial fib/flutter. BP stable. Pt A&O x 4. Pleasant and cooperative with care. SpO2 90% or greater RA. Medical floor nurse states she will notify pt's family of transfer. Pt identifies his mother as the person who should be notified. Bed in lowest position. Call light in reach. Denies need at this time.
[2024-12-25] MEDS ORDERED: Magnesium Sulf 2 GM/Water 50ML 50 ML IV ONE (18:40)
[2024-12-25] MEDS ORDERED: Potassium Chloride 10 Meq Tablet SA PO ONE (18:40)
[2024-12-25] MEDS ORDERED: Digoxin 0.25 MG in NS 4 ML IV SCH (20:00)
--- NOTE | 2024-12-25 22:05 | NUR ---
NOTIFIED BY MED FLOOR CHARGE NURSE THAT THE PT HAD AN EMPTY BEER CAN IN HIS GARBAGE CAN IN HIS ROOM. WHEN ASKED, HE DID NOT DENY THAT HE DRANK IT TODAY. HE ALSO STATED THAT HE HAD ANOTHER ONE IN HIS BELONGINGS. WENT THRU PT'S BELONGINGS IN FRONT OF HIM AND DUMPED THE REMAINING BEER OUT. PT WAS ADVISED OF THE DRUG AND ALCOHOL POLICY.
[2024-12-26] VITALS (43 sets, daily range): BP systolic 93–163; BP diastolic 49–138
[2024-12-26 04:16] LABS: Albumin, Blood 3.4 g/dL (3.4-5.0); Anion Gap 7 mmol/L (3-11); Blood Urea Nitrogen 23 mg/dL (8-24); CO2, Blood 29 mmol/L (21-32); Calcium, Blood 8.4 mg/dL (8.5-10.1); Chloride, Blood 105 mmol/L (98-108); Creatinine, Blood 1.29 mg/dL (0.60-1.20); Glucose, Blood 184 mg/dL (70-99); Magnesium, Blood 2.4 mg/dL (1.6-2.4); Phosphorus, Blood 4.3 mg/dL (2.5-4.9); Potassium, Blood 4.3 mmol/L (3.5-5.5); Sodium, Blood 137 mmol/L (136-145)
--- NOTE | 2024-12-26 06:17 | NUR ---
SHIFT SUMMARY A/OX4, VERY PLEASANT AND COOPERATIVE, FOLLOWS COMMANDS APPROP. ST 120'S T/O NIGHT WITH A SHORT PERIOD OF AFIB 100'S TO 110'S, BACK TO ST 120'S REST OF NIGHT. DENIED CP/DISCOMFORT T/O NIGHT. BP STABLE. FEBRILE 101 START OF SHIFT, NOW DOWN TO 99.8, ASYMPTOMATIC. AMIODARONE GTT CONTINUES AT MAINTENANCE RATE 0.5 MG/HR. VOIDING WITH URINAL AT BEDSIDE. WILL UPDATE DAY RN WITH ALL OUTSTANDING ISSUES AND PROBLEMS TO DATE.
[2024-12-26] MEDS ORDERED: DEXTROMETHORPHAN/BENZOCAINE 1 EACH LOZENGE MT PRN (08:40)
--- NOTE | 2024-12-26 08:41 | NUR ---
Pt. is awake in bed when he welcomes my visit. This chorus dancer had visited himthe previous day just prior to his RR event. Pt. verbalized genuine gratitude for the quick ressponse of the care team. Facilitated an update of Pts. personal assesment and care plan. Pt. verbalized expectation of some sort of cardiac procedure. Pt. displays evidence of confidence and jessa. Prayed with the Pt. Pt. verbalized gratitude for the spiritual care visit and welcomed this chorus dancer to return.
[2024-12-26] MEDS ORDERED: Benzocaine Oral Spray 0.5ML UD ONE (09:37)
[2024-12-26 10:01] LABS: Thyroid Stimulating Hormone 0.16 uIU/mL (0.360-4.800)
--- NOTE | 2024-12-26 10:39 | NUR ---
FIDENCIO WITH CARDIOVERSION: 1038: PROPOFOL ADMINISTERED BY ANESTHESIOLOGY. HIGH FLOW O2 OF 15L/MIN INITIATED. SPO2 >92% 1040: FIDENCIO INITIATED BY DR. ALVARADO. VERIFIED PATIENT WAS APPROPRIATE FOR CARDIOVERSION. VITALS STABLE WITH SBP IN THE 140S-150S. HR IN THE 120S. 1044: SHOCK DELIVERED. VIA ZOLL, 200 JOULES, SYNCED. APPEARS NORMAL SINUS ON MONITOR. EKG ORDERED TO VERIFY. HR IN THE 60S. VITALS CONTINUE TO BE STABLE WITH SBP IN THE 140S. PATIENT ANSWERING QUESTIONS AND ASKING ABOUT THE PROCEDURE. EKG COMPLETED AND SENT TO DR. SONG.
--- NOTE | 2024-12-26 19:22 | NUR ---
SHIFT SUMMARY: NEURO: PATIENT ALERT AND ORIENTED X4 THROUGHOUT THE SHIFT. PATIENT UP TO THE CHAIR AND ABLE TO PERFORM ADLS WITH MIN ASSIST. PATIENT DENIED NUMBNESS TINGLING. STRENGTH EQUAL ACROSS EXTREMITIES. CIWA 2-5 THROUGHOUT THE SHIFT. MEDICATED MULTIPLE TIMES TO MAINTAIN STABLE WITHDRAWAL. CARDIAC: PATIENT STARTED THE SHIFT IN A TACHY AFLUTTER WITH RATE IN THE 120S. PATIENT CARDIOVERTED WITH FIDENCIO AT 1044. SEE NURSE'S NOTE. PATIENT IN SINUS FOR THE REMAINDER OF THE SHIFT. PATIENT REPORTED FEELING BETTER. VITALS STABLE WITH SBP IN THE 140S. NO CHANGE TO RHYTHM WITH ACTIVITY. SHABANA HOSE IN PLACE. LEGS ELEVATED ABLE. CONTINUES TO HAVE 2+ EDEMA IN BLE. AMIODORONE GTT FINISHED AT 18:10 TODAY. RESPIRATORY: PATIENT REQUIRED 3L VIA NC TO MAINTAIN SPO2 >94% TODAY. PATIENT DENIED SHORTNESS OF BREATH OR DIFFICULTY BREATHING. GI/: PATIENT TOLERATING PO INTAKE WITHOUT DISCOMFORT. FOLLOWING FLUID RESTRICTION WITH ASSISTANCE FROM STAFF. PATIENT REPORTED LACK OF BM FOR MULTIPLE DAYS. PROVIDED WITH PRUNE JUICE AND APPLE JUICE. NO BM BY THE END OF SHIFT. PATIENT VOIDING WITHOUT DIFFICULTY. PATIENT HAS HAD LOWER URINE OUTPUT WHEN COMPARED TO THE PRIOR DAYS. PSYCHSOCIAL: PATIENT REPORTS THAT HE IS MOTIVATED TO WEAR HIS CPAP AT HOME, QUIT DRINKING, QUIT SMOKING AND EAT BETTER. DISCUSSED OPTIONS AND WHAT HE THINKS ARE HIS BARRIERS AT HOME. PATIENT WOULD LIKE A LIST OF AA MEETINGS AND A MEDICATION TO TAKE AT HOME THAT WOULD HELP WITH ALCOHOL CRAVINGS. PASSED THIS INFORMATION ON TO [facility].
--- NOTE | 2024-12-26 21:38 | NUR ---
ASSUMPTION OF CARE: ASSUMED CARE AT 1900 PT WAS RELAXING IN CHAIR, PT ALERT A&OX4 AND ABLE TO MAKE NEEDS KNOWN. VITAL SIGNS STABLE. SPO2 OVER 90% ON 3L NC AND PT DENIES SOB. MONITOR SHOWS NSR HR IN THE 80'S. PT DENIES CP/PRESSURE. TRANSFERRED TO PCU 4 AT 2130 VIA W/C-BELONGINGS WITH PATIENT
[2024-12-27] VITALS (8 sets, daily range): BP systolic 116–154; BP diastolic 65–99
--- NOTE | 2024-12-27 05:56 | NUR ---
PT WAS TRANSFERRED FROM ICU. NO ACUTE EVENTS OVERNIGHT. PT FOLLOWS COMMANDS. CALLS APPROPRIATELY. CIWA SCORE 5-8. PT WOULD BECOME IMPULSIVE AND TAKE OF CPAP INTERMITTENTLY. USES URINAL. BED LOCKED IN LOWEST POSITION. BED ALARM ON. CALL LIGHT WITHIN REACH. PT'S WALLET AND BAG OF HOME MEDS IN PT'S ASSIGNED LOCKBOX.
[2024-12-27 10:17] LABS: Albumin, Blood 3.4 g/dL (3.4-5.0); Anion Gap 8 mmol/L (3-11); Blood Urea Nitrogen 29 mg/dL (8-24); CO2, Blood 27 mmol/L (21-32); Calcium, Blood 8.8 mg/dL (8.5-10.1); Chloride, Blood 106 mmol/L (98-108); Creatinine, Blood 1.16 mg/dL (0.60-1.20); Glucose, Blood 252 mg/dL (70-99); Magnesium, Blood 2.5 mg/dL (1.6-2.4); Phosphorus, Blood 3.5 mg/dL (2.5-4.9); Potassium, Blood 5.0 mmol/L (3.5-5.5); Sodium, Blood 136 mmol/L (136-145)
--- NOTE | 2024-12-27 10:27 | NUR ---
AM NOTE: PATIENT ALERT AND ORIENTED X4. ABLE TO MAKE ALL NEEDS KNOWN. CALM AND COOPERATIVE WITH CARE. ANXIOUS ABOUT DISCHARGE PLAN AND PATIENT WANTING TO QUIT DRINKING AND GO TO REHAB. WEARING 2-3L NASAL CANNULA NEEDED. PATIENT TENDS TO PULL CPAP OFF WHEN SLEEPING. LUNG SOUNDS CLEAR AND DIM IN BASES. DENEIS COUGH. TELE SHOWING SR WITH HR 60-70'S. DENIES CHEST PAIN/PRESSURE/PALPITATIONS. PPP. EDEMA TO BLE. DR. SLADE CALLED THIS AM TO ASK ABOUT PO CARDIAC MEDICATIONS. MEDICATIONS UPDATED AND PATIENT EDUCATED ON NEW PO MEDICATIONS. IV SALINE LOCKED. DENIES ABDOMINAL PAIN/NAUSEA. TOLERATING PO DIET. FLUID RESTRICTION IN PLACE. SKIN WITH OLD SCARS, FRAGILE AND DRY. CALL LIGHT IN REACH. DENIES NEEDS AT THIS TIME.
--- NOTE | 2024-12-27 12:31 | NUR ---
DR. SLADE TO BEDSIDE THIS AFTERNOON. NO NEW ORDERS FOR THIS RN TO PLACE. PATIENT UP TO RECLINER AFTER SHOWER. CIWA SCORING 1. WEARING 2L NASAL CANNULA. TELE SHOWING SR WITH HR 60-70'S. PATIENT STATES "I HAVE NOT FELT THIS GOOD IN 3 WEEKS". THANKFUL TOWARDS STAFF. DENIES NEEDS AT THIS TIME.
[2024-12-27] MEDS ORDERED: Torsemide 20 MG TAB PO SCH (14:00)
--- NOTE | 2024-12-27 18:39 | NUR ---
SHIFT SUMMARY: NO ACUTE CHANGES. PATIENT REMAINS ALERT AND ORIENTED. ON 2L NASAL CANNULA. TELE CONTINUES TO SHOW SR. UP TO RECLINER THIS AFTERNOON. CIWA SCORING 1. DENIES PAINS. FLUIDS RESTRICTION MAINTAINED. USING URINAL IND. CALL LIGHT IN REACH. DENIES NEEDS AT THIS TIME.
[2024-12-28 03:54] VITALS: BP 134/91
[2024-12-28 04:24] LABS: Anion Gap 5.0 mmol/L (3-11); Blood Urea Nitrogen 37.0 mg/dL (8-24); CO2, Blood 31.0 mmol/L (21-32); Calcium, Blood 9.0 mg/dL (8.5-10.1); Chloride, Blood 106.0 mmol/L (98-108); Creatinine, Blood 1.33 mg/dL (0.60-1.20); Glucose, Blood 130.0 mg/dL (70-99); Potassium, Blood 4.1 mmol/L (3.5-5.5); Sodium, Blood 138.0 mmol/L (136-145)
--- NOTE | 2024-12-28 06:11 | NUR ---
NO ACUTE EVENTS OVERNIGHT. PT WAS COMPLIANT WITH CPAP. HR WAS LOW 48. PT ASYMPTOMATIC. HR MAINTAINED IN 50s. VSS. BED LOCKED IN LOWEST POSITION. CALL LIGHT WITHIN REACH. PT USED URINAL APPROPRIATELY.
[2024-12-28 07:26] VITALS: BP 149/99
[2024-12-28] MEDS ORDERED: Torsemide 20 MG TAB PO SCH (09:00)
--- NOTE | 2024-12-28 09:43 | NUR ---
AM NOTE: PATIENT ALERT AND ORIENTED. UP TO BATHROOM AND SITTING IN RECLINER THIS AM. IND WITH TRANSFERS. TITRATED TO ROOM AIR AND SATING ABOVE 95%. USING CPAP FOR NOC. LUNG SOUNDS CLEAR AND DIM IN BASES. MILD SOB WITH EXCERTION. TELE SHOWING SB/SR WITH HR 50-60'S. DENIES CHEST PAIN/PRESSURE/PALPITATIONS. PPP. BLE EDEMA. IV SALINE LOCKED. BOWEL TONES PRESENT. DENIES ABDOMINAL PAIN/NAUSEA. TOLERATING PO DIET. UP TO BATHROOM TO VOID. FLUID RESTRICTION MAINTAINED. USING CALL LIGHT FOR NEEDS. UP IN RECLINER AT THIS TIME.
--- NOTE | 2024-12-28 10:52 | NUR ---
DR. SLADE TO BEDSIDE FOR MD ROUNDING. THIS RN PRESENT. PLAN FOR DISCHARGE. CASE MANAGMENT IN AND PROVIDED PATIENT WITH ALCOHOL REHAB EDUCATION/ RESOURCES AT PATIENT REQUEST.
[2024-12-28] MEDS ORDERED: AMIODARONE HCL400 M1 PO (12:00)
[2024-12-28] MEDS ORDERED: COREG12.5 M1 PO (12:00)
[2024-12-28] MEDS ORDERED: AMIODARONE HCL400 M2 PO (12:00)
[2024-12-28] MEDS ORDERED: JARDIANCE10 MG PO (12:01)
[2024-12-28] MEDS ORDERED: Prednisone10 MG PO (12:02)
[2024-12-28] MEDS ORDERED: B-1100 M1 PO (12:03)
[2024-12-28] MEDS ORDERED: Hair, Skin & N1 EACH PO (12:03)
[2024-12-28] MEDS ORDERED: TORSE20 PO (12:03)
--- NOTE | 2024-12-28 14:43 | NUR ---
DISCHARGE: NO ACUTE CHANGES. THIS RN REVIEWED DISCHARGE INSTRUCTIONS AND ALL EDUCATION WITH PATIENT. EDUCATION INCLUDED FOLLOW UP APPOINTMENTS, STOPPED MEDICATIONS, NEW MEDICATIONS, AMIO LOADING DOSE, AMIO DAILY DOSING, DIET, SHABANA HOSE, REHAB RESOURCES, PHARMACY COUPONS, DAILY WEIGHTS, CPAP AND SIGNS AND SYMPTOMS OF WHEN TO RETURN. PATIENT LEFT UNIT WITH ALL PERSONAL BELONGINGS AND DISCHARGE PACKET.
== END 2024-12-28 13:30 | disposition home or self-care (01) | DRG 896 ==
LOC: ER 13:16 → MEDS 17:01 → ICUE 12-25 15:25 → MEDS 12-25 17:36 → ICUE 12-25 18:09 → PCU 12-26 21:29
PROVIDERS: Emergency Medicine; Internal Medicine; ADMIT Internal Medicine
PROC: 5A09357 Assistance with Respiratory Ventilation, Less than 24 Consecutive Hours, Continuous Positive Airway Pressure (ICD-10-PCS; principal; 2024-12-25)
PROC: 5A2204Z Restoration of Cardiac Rhythm, Single (ICD-10-PCS; 2024-12-26)
PROC: HZ2ZZZZ Detoxification Services for Substance Abuse Treatment (ICD-10-PCS; 2024-12-26)
DX: F10.130 Alcohol abuse with withdrawal, uncomplicated (principal); I50.31 Acute diastolic (congestive) heart failure; I47.20 Ventricular tachycardia, unspecified; I48.92 Unspecified atrial flutter; J44.1 Chronic obstructive pulmonary disease with (acute) exacerbation; I25.10 Atherosclerotic heart disease of native coronary artery without angina pectoris; E78.5 Hyperlipidemia, unspecified; G47.33 Obstructive sleep apnea (adult) (pediatric); I48.0 Paroxysmal atrial fibrillation; I11.0 Hypertensive heart disease with heart failure; Z66 Do not resuscitate; G47.00 Insomnia, unspecified; E66.9 Obesity, unspecified; I73.9 Peripheral vascular disease, unspecified; E83.39 Other disorders of phosphorus metabolism; E05.80 Other thyrotoxicosis without thyrotoxic crisis or storm; Z98.890 Other specified postprocedural states; Z68.37 Body mass index [BMI] 37.0-37.9, adult; Z95.1 Presence of aortocoronary bypass graft; Z79.01 Long term (current) use of anticoagulants; Z79.51 Long term (current) use of inhaled steroids; Z79.52 Long term (current) use of systemic steroids; Z79.82 Long term (current) use of aspirin; Z79.899 Other long term (current) drug therapy
CPT/HCPCS: 36415; 71045; 80048; 80053; 80069; 80162; 80320; 83735; 83880; 84100; 84439; 84443; 84481; 84484; 85025; 85027; 85610; 92960; 93005; 93010; 93308; 93312; 93321; 93325; 94640; 94660; 94664; 94762; 96374; 99285-25; A9270; G0378; J0282; J1160; J1938; J2704; J2919; J3475; J7050; J7060; J7512

== ENCOUNTER 2025-03-13 10:00 | Inpatient (IN) | payer OTHER ==
[~2025-03-13] VITALS: Ht 177.8 cm; Wt 109.4 kg
[~2025-03-13 10:00] MED LIST changes: +AMIODARONE HCL400 M1 PO; +AMIODARONE HCL400 M2 PO; +ATOR40TA PO; +B-1100 M1 PO; +COREG12.5 M1 PO; +Hair, Skin & N1 EACH PO; +JARDIANCE10 MG PO; +Mobic15 MG PO; +Naltrexone HCl50 MG PO; +Prednisone10 MG PO; +TORSE20 PO; +VITAMIN D5000 UNIT PO; +ZYRTEC10 M2 PO
[2025-03-13 10:19] LABS: pH Blood Venous 7.32 (7.34-7.37)
[2025-03-13 10:23] LABS: BASOPHILS ABSOLUTE AUTO 0.11 K/mm3 (0.00-0.23); BASOPHILS PERCENT AUTO 1 % (0-2); EOSINOPHILS ABSOLUTE AUTO 0.55 K/mm3 (0.00-0.68); EOSINOPHILS PERCENT AUTO 6 % (0-6); Hematocrit 44.6 % (37.0-53.0); Hemoglobin 14.8 g/dL (13.5-17.5); IMMATURE GRAN ABSOLUTE AUTO 0.02 K/mm3 (0.00-0.10); IMMATURE GRAN PERCENT AUTO 0 % (0-1); LYMPHOCYTES ABSOLUTE AUTO 1.60 K/mm3 (0.84-5.20); LYMPHOCYTES PERCENT AUTO 17 % (21-46); MONOCYTES ABSOLUTE AUTO 0.76 K/mm3 (0.16-1.47); MONOCYTES PERCENT AUTO 8 % (4-13); Mean Corpuscular HGB Conc 33.2 g/dL (31.5-36.5); Mean Corpuscular Volume 94 fL (80-100); NEUTROPHILS ABSOLUTE AUTO 6.24 K/mm3 (1.96-9.15); NEUTROPHILS PERCENT AUTO 67 % (41-73); NRBC ABSOLUTE 0.00 K/mm3 (0.00-0.02); NRBC Auto 0.0 /100 WBC (0.0-0.2); Platelet Count 257 K/mm3 (150-400); RDW Coefficient Variation 13.1 % (11.7-14.2); RDW Standard Deviation 45.1 fL (35.1-46.3)
[2025-03-13 10:54] LABS: Alanine Aminotransfer (ALT/SGP 24.0 U/L (12-78); Albumin, Blood 3.3 g/dL (3.4-5.0); Albumin/Globulin Ratio 1.0 (0.8-1.8); Anion Gap 7.0 mmol/L (3-11); Aspartate Aminotrans (AST/SGOT 18.0 U/L (12-37); Bilirubin, Total 0.4 mg/dL (0.1-1.0); Blood Urea Nitrogen 18.0 mg/dL (8-24); CO2, Blood 27.0 mmol/L (21-32); Calcium, Blood 8.6 mg/dL (8.5-10.1); Chloride, Blood 109.0 mmol/L (98-108); Creatinine, Blood 1.34 mg/dL (0.60-1.20); Globulin, Blood 3.3 g/dL (2.2-4.0); Glucose, Blood 121.0 mg/dL (70-99); Potassium, Blood 3.8 mmol/L (3.5-5.5); Sodium, Blood 139.0 mmol/L (136-145); Total Protein, Blood 6.6 g/dL (6.4-8.2)
[2025-03-13] MEDS ORDERED: Ipratropium/Albuterol SulF 2.5-0.5MG/3 ML Amp INH ONE (10:55)
[2025-03-13 11:13] LABS: Influenza A, PCR NEGATIVE (NEGATIVE); Influenza B, PCR NEGATIVE (NEGATIVE); Resp Syncytial Virus, PCR NEGATIVE (NEGATIVE); SARS-Cov-2 (COVID-19) PCR, MMC NEGATIVE (NEGATIVE)
[2025-03-13] MEDS ORDERED: Albuterol 2.5 MG/3 ML VIAL INH SCH (12:10)
[2025-03-13] MEDS ORDERED: Magnesium Sulf 2 GM/Water 50ML 50 ML IV ONE (12:10)
[2025-03-13] MEDS ORDERED: FLU VACC TS2025-26(6MOS UP)/PF 45 MCG/0.5 ML SYRINGE IM SCH (15:30)
[2025-03-13] MEDS ORDERED: Ipratropium/Albuterol SulF 2.5-0.5MG/3 ML Amp INH SCH (16:15)
[2025-03-13] MEDS ORDERED: Albuterol 2.5 MG/3 ML VIAL INH PRN (16:15)
[2025-03-13 17:17] VITALS: BP 132/77
--- NOTE | 2025-03-13 18:24 | NUR ---
ADMIT PT ADMITTED FROM ER AT 1715 FOR COPD EXACERBATION. PT ORIENTED TO ROOM AND CALL LIGHT. IV AZITHROMYCIN STARTED. PT PLEASANT AND COOPERATIVE WITH CARE, CALL LIGHT IN REACH.
[2025-03-13 21:13] VITALS: BP 123/75
[2025-03-13] MEDS ORDERED: Guaifenesin/Dextromethorphan Syrup 5 ML UDC PO PRN (22:40)
[2025-03-14 03:54] VITALS: BP 121/66
--- NOTE | 2025-03-14 06:22 | NUR ---
SHIFT SUMMARY PATIENT ADMITTED FOR ACUTE HYPOXIC RESPIRATORY FAILURE AND COPD EXACERBATION. VSS. ALERT AND ORIENTED X4. INDEPENDENT IN ROOM, USES URINAL. PATIENT HAS COMPLAINTS OF HEAD BEING STUFFY, A HEADACHE, AND A COUGH. PATIENT MEDICATED WITH TYLENOL AND ROBATUSSIN. BED RAILS UP X2. BED IN LOWEST POSITION FOR SAFETY. CALL LIGHT WITHIN REACH.
[2025-03-14 06:31] LABS: BASOPHILS ABSOLUTE AUTO 0.02 K/mm3 (0.00-0.23); BASOPHILS PERCENT AUTO 0 % (0-2); EOSINOPHILS ABSOLUTE AUTO 0.00 K/mm3 (0.00-0.68); EOSINOPHILS PERCENT AUTO 0 % (0-6); Hematocrit 42.2 % (37.0-53.0); Hemoglobin 14.4 g/dL (13.5-17.5); IMMATURE GRAN ABSOLUTE AUTO 0.05 K/mm3 (0.00-0.10); IMMATURE GRAN PERCENT AUTO 0 % (0-1); LYMPHOCYTES ABSOLUTE AUTO 0.98 K/mm3 (0.84-5.20); LYMPHOCYTES PERCENT AUTO 7 % (21-46); MONOCYTES ABSOLUTE AUTO 0.22 K/mm3 (0.16-1.47); MONOCYTES PERCENT AUTO 2 % (4-13); Mean Corpuscular HGB Conc 34.1 g/dL (31.5-36.5); Mean Corpuscular Volume 93 fL (80-100); NEUTROPHILS ABSOLUTE AUTO 13.18 K/mm3 (1.96-9.15); NEUTROPHILS PERCENT AUTO 91 % (41-73); NRBC ABSOLUTE 0.00 K/mm3 (0.00-0.02); NRBC Auto 0.0 /100 WBC (0.0-0.2); Platelet Count 240 K/mm3 (150-400); RDW Coefficient Variation 13.0 % (11.7-14.2); RDW Standard Deviation 44.0 fL (35.1-46.3)
[2025-03-14 07:08] LABS: Alanine Aminotransfer (ALT/SGP 20.0 U/L (12-78); Albumin, Blood 3.1 g/dL (3.4-5.0); Albumin/Globulin Ratio 1.0 (0.8-1.8); Anion Gap 9.0 mmol/L (3-11); Aspartate Aminotrans (AST/SGOT 15.0 U/L (12-37); Bilirubin, Total 0.5 mg/dL (0.1-1.0); Blood Urea Nitrogen 19.0 mg/dL (8-24); CO2, Blood 23.0 mmol/L (21-32); Calcium, Blood 9.1 mg/dL (8.5-10.1); Chloride, Blood 109.0 mmol/L (98-108); Creatinine, Blood 1.17 mg/dL (0.60-1.20); Globulin, Blood 3.2 g/dL (2.2-4.0); Glucose, Blood 166.0 mg/dL (70-99); Potassium, Blood 3.7 mmol/L (3.5-5.5); Sodium, Blood 137.0 mmol/L (136-145); Total Protein, Blood 6.3 g/dL (6.4-8.2)
[2025-03-14 07:18] VITALS: BP 117/74
[2025-03-14] MEDS ORDERED: Enoxaparin 40 MG/0.4 ML SYR SC SCH (09:00)
[2025-03-14 15:18] VITALS: BP 124/76
[2025-03-14] MEDS ORDERED: NS 250 ML IV PRN (15:40)
--- NOTE | 2025-03-14 16:55 | NUR ---
SHIFT SUMMARY MR CROWLEY IS ALERT, ORIENTATED X4. INDEPENDENT TO BATHROOM WITH STEADY GAIT. HE IS ON CONTINUOUS PULSE OX IN THE 90S ON ROOM AIR. HE C/O FEELING VERY CONGESTED DESCRIBED "THE WORST COLD I'VE EVER HAD". ABDOMEN DISTENDED AND FIRM. MR CROWLEY REPORTS INCREASING DISTENSION AND FIRMNESS OVER THE PAST 2 WEEKS. HE REPORTS HE HAS BEEN SOBER X 75 DAYS AND HAS A HEAVY ETOH HISTORY. ECHO AND ABDOMINAL ULTRASOUND DONE AT BEDSIDE. BED LOW, CALL LIGHT IN REACH.
[2025-03-14] MEDS ORDERED: TRAZ100 PO (18:50)
[2025-03-14 22:38] VITALS: BP 144/92
--- NOTE | 2025-03-14 22:43 | NUR ---
CPAP- PT DECLINED TO WHERE FULL FACE CPAP.
[2025-03-15 02:41] VITALS: BP 108/66
[2025-03-15] MEDS ORDERED: Fluticasone 0.05% Nasal Spray SCH (05:50)
--- NOTE | 2025-03-15 06:16 | NUR ---
NASAL SPRAY, RESP PANEL- CALL TO HCP. PATIENT REPORTS THAT HE IS NOT FEELING AT ALL BETTER SINCE ADMIT. THIS RN REQUESTED A NASAL SPRAY TO HELP WITH SINUS CONGESTON AND A REPEAT NASAL SWAB SINCE HE HAD ONLY BEEN SICK FOR LESS THAN 24 HOURS WHEN ORIGINALLY TESTED.
--- NOTE | 2025-03-15 06:17 | NUR ---
SHIFT SUMMARY- THE PATIENT'S ROUTINE NIGHT HOME MEDICATIONS WERE ORDERED BY THE ON-CALL PROVIDER. THE PATIENT'S DAYTIME MEDICATIONS STILL REQUIRE ORDERING, BUT THE CURRENT LIST IN THE MEDICATION RECONCILIATION IS ACCURATE. THE PATIENT REFUSED THE USE OF A CPAP MACHINE, STATING A DISLIKE FOR THE FULL-FACE MASK. RESPIRATORY THERAPY WAS CONSULTED TO OFFER A NASAL MASK ALTERNATIVE; HOWEVER, THE PATIENT REFUSED THAT OPTION WELL. PT IS WORRIED THAT HE IS NOT FEELING BETTER. CALL TO HCP. ORDER FOR RECHECK RESPIRATORY PANEL AND NASAL SPRAY TO HELP WITH SINUS CONGESTION. MEDICATIONS- WHOLE WITH WATER AMBULATION- INDEPENDENT URINATION/DEFICATION- CONTINENT.
[2025-03-15 07:09] VITALS: BP 136/89
[2025-03-15 07:25] LABS: Influenza A, PCR NEGATIVE (NEGATIVE); Influenza B, PCR NEGATIVE (NEGATIVE); Resp Syncytial Virus, PCR NEGATIVE (NEGATIVE); SARS-Cov-2 (COVID-19) PCR, MMC NEGATIVE (NEGATIVE)
[2025-03-15 08:49] LABS: BASOPHILS ABSOLUTE AUTO 0.02 K/mm3 (0.00-0.23); BASOPHILS PERCENT AUTO 0 % (0-2); EOSINOPHILS ABSOLUTE AUTO 0.00 K/mm3 (0.00-0.68); EOSINOPHILS PERCENT AUTO 0 % (0-6); Hematocrit 41.6 % (37.0-53.0); Hemoglobin 13.8 g/dL (13.5-17.5); IMMATURE GRAN ABSOLUTE AUTO 0.09 K/mm3 (0.00-0.10); IMMATURE GRAN PERCENT AUTO 1 % (0-1); LYMPHOCYTES ABSOLUTE AUTO 0.85 K/mm3 (0.84-5.20); LYMPHOCYTES PERCENT AUTO 5 % (21-46); MONOCYTES ABSOLUTE AUTO 0.38 K/mm3 (0.16-1.47); MONOCYTES PERCENT AUTO 2 % (4-13); Mean Corpuscular HGB Conc 33.2 g/dL (31.5-36.5); Mean Corpuscular Volume 92 fL (80-100); NEUTROPHILS ABSOLUTE AUTO 15.13 K/mm3 (1.96-9.15); NEUTROPHILS PERCENT AUTO 92 % (41-73); NRBC ABSOLUTE 0.00 K/mm3 (0.00-0.02); NRBC Auto 0.0 /100 WBC (0.0-0.2); Platelet Count 254 K/mm3 (150-400); RDW Coefficient Variation 13.2 % (11.7-14.2); RDW Standard Deviation 43.9 fL (35.1-46.3)
[2025-03-15] MEDS ORDERED: Torsemide 20 MG TAB PO SCH (09:00)
[2025-03-15] MEDS ORDERED: Cholecalciferol 1000 Unit Tablet (=25MCG) PO SCH (09:00)
[2025-03-15 09:10] LABS: Alanine Aminotransfer (ALT/SGP 20.0 U/L (12-78); Albumin, Blood 3.3 g/dL (3.4-5.0); Albumin/Globulin Ratio 1.1 (0.8-1.8); Anion Gap 8.0 mmol/L (3-11); Aspartate Aminotrans (AST/SGOT 15.0 U/L (12-37); Bilirubin, Total 0.6 mg/dL (0.1-1.0); Blood Urea Nitrogen 22.0 mg/dL (8-24); CO2, Blood 24.0 mmol/L (21-32); Calcium, Blood 9.1 mg/dL (8.5-10.1); Chloride, Blood 111.0 mmol/L (98-108); Creatinine, Blood 1.05 mg/dL (0.60-1.20); Globulin, Blood 3.0 g/dL (2.2-4.0); Glucose, Blood 150.0 mg/dL (70-99); Potassium, Blood 3.9 mmol/L (3.5-5.5); Sodium, Blood 139.0 mmol/L (136-145); Total Protein, Blood 6.3 g/dL (6.4-8.2)
[2025-03-15 10:34] LABS: pH Blood Venous 7.42 (7.34-7.37)
[2025-03-15 15:00] VITALS: BP 120/80
--- NOTE | 2025-03-15 19:05 | NUR ---
SHIFT SUMMARY PT IS A/OX4. INDEPENDENT IN THE ROOM. NO ACUTE CHANGES THROUGHOUT THIS SHIFT. ON RA, SATS >90% ON CONT PULSE OX. PT REPORTS IMPROVEMENT TO BREATHING AND SOB. PT IS PLEASANT AND COOPERATIVE WITH CARE AND CALLS APPROPRIATELY.
[2025-03-15 19:38] VITALS: BP 121/72
--- NOTE | 2025-03-16 04:37 | NUR ---
SHIFT SUMMARY- NO SHIFT EVENTS. PATIENT RESTED COMFORTABLY THROUGHOUT THE SHIFT. PATIENT HAS A ABDOMINAL CT RESULT THAT NEEDS TO BE DISCUSSED WHEN HE IS ROUNDED ON IN THE AM. MEDICATIONS- WHOLE WITH WATER AMBULATION- INDEPENDENT URINATION/DEFICATION- CONTINENT.
[2025-03-16 05:19] VITALS: BP 134/89
[2025-03-16 06:35] LABS: BASOPHILS ABSOLUTE AUTO 0.01 K/mm3 (0.00-0.23); BASOPHILS PERCENT AUTO 0 % (0-2); EOSINOPHILS ABSOLUTE AUTO 0.00 K/mm3 (0.00-0.68); EOSINOPHILS PERCENT AUTO 0 % (0-6); Hematocrit 43.3 % (37.0-53.0); Hemoglobin 14.3 g/dL (13.5-17.5); IMMATURE GRAN ABSOLUTE AUTO 0.06 K/mm3 (0.00-0.10); IMMATURE GRAN PERCENT AUTO 0 % (0-1); LYMPHOCYTES ABSOLUTE AUTO 0.74 K/mm3 (0.84-5.20); LYMPHOCYTES PERCENT AUTO 6 % (21-46); MONOCYTES ABSOLUTE AUTO 0.25 K/mm3 (0.16-1.47); MONOCYTES PERCENT AUTO 2 % (4-13); Mean Corpuscular HGB Conc 33.0 g/dL (31.5-36.5); Mean Corpuscular Volume 94 fL (80-100); NEUTROPHILS ABSOLUTE AUTO 12.45 K/mm3 (1.96-9.15); NEUTROPHILS PERCENT AUTO 92 % (41-73); NRBC ABSOLUTE 0.00 K/mm3 (0.00-0.02); NRBC Auto 0.0 /100 WBC (0.0-0.2); Platelet Count 225 K/mm3 (150-400); RDW Coefficient Variation 13.2 % (11.7-14.2); RDW Standard Deviation 45.2 fL (35.1-46.3)
[2025-03-16 07:01] LABS: Alanine Aminotransfer (ALT/SGP 23.0 U/L (12-78); Albumin, Blood 3.2 g/dL (3.4-5.0); Albumin/Globulin Ratio 1.1 (0.8-1.8); Anion Gap 7.0 mmol/L (3-11); Aspartate Aminotrans (AST/SGOT 13.0 U/L (12-37); Bilirubin, Total 0.5 mg/dL (0.1-1.0); Blood Urea Nitrogen 30.0 mg/dL (8-24); CO2, Blood 28.0 mmol/L (21-32); Calcium, Blood 8.9 mg/dL (8.5-10.1); Chloride, Blood 108.0 mmol/L (98-108); Creatinine, Blood 1.3 mg/dL (0.60-1.20); Globulin, Blood 2.9 g/dL (2.2-4.0); Glucose, Blood 133.0 mg/dL (70-99); Potassium, Blood 3.8 mmol/L (3.5-5.5); Sodium, Blood 139.0 mmol/L (136-145); Total Protein, Blood 6.1 g/dL (6.4-8.2)
[2025-03-16 07:08] VITALS: BP 151/94
--- NOTE | 2025-03-16 18:34 | NUR ---
SUMMARY- PT A/O X4, INDEPENDANT IN ROOM. LUNGS DIM R MID AND BLE. STRONG COUGH, STATES MIN PRODUCTION. TAKING GUIAFENNISIN AND ROBITUSSIN ROUTINELY. ON ROOM AIR THIS AM, ADDED 1L/NC, SATTING 92%. TOLERATING FOOD AND FLUIDS. USES URINAL, STATES NORMAL BM YESTERDAY. COMPLAINS OF HIS ABD FEELING BLOATED AND TIGHT INCREASINGLY FOR THE PAST FEW WEEKS. KNOWN UMBILICAL HERNIAS. DR SLADE AWARE, DISCUSSED WITH PT. WILL REPORT TO NOC RN
[2025-03-16 19:59] VITALS: BP 131/78
[2025-03-17 04:39] VITALS: BP 136/92
--- NOTE | 2025-03-17 04:57 | NUR ---
SHIFT SUMMARY; PT A/OX4, INDEPENDENT, AND CALLS APPROPRIATELY. PT MEDICATED PER EMAR. LUNG SOUNDS DIMINISHED IN THE BASES UPON AUSCULTATION. RT AT BEDSIDE DURING SHIFT TO ADMINISTER BREATHING TX. PT CONTINUES TO UTILIZE O2 1 L NC, W/ SATS BETWEEN 92-93%. PT MEDICATED PER EMAR. VSS. BED IN LOWEST POSITION WITH CALL LIGHT IN REACH.
[2025-03-17 06:36] LABS: Anion Gap 8.0 mmol/L (3-11); Blood Urea Nitrogen 31.0 mg/dL (8-24); CO2, Blood 28.0 mmol/L (21-32); Calcium, Blood 9.2 mg/dL (8.5-10.1); Chloride, Blood 106.0 mmol/L (98-108); Creatinine, Blood 1.18 mg/dL (0.60-1.20); Glucose, Blood 143.0 mg/dL (70-99); Potassium, Blood 3.6 mmol/L (3.5-5.5); Sodium, Blood 138.0 mmol/L (136-145)
[2025-03-17 07:33] VITALS: BP 142/98
--- NOTE | 2025-03-17 11:15 | NUR ---
Upon receiving a referral for spiritual care, I visited the patient. He share about his medical problems, his discouragement about not being able to visit his son in [place] because of his medical issues, and his gratitude for the clinicians that have supplied the care he needs with fadumo and kindness. I provided therapeutic listening, spiritual guidance and prayer. The patient voiced his appreciation and showed signs of an elevated mood. I will continue to remain available to the patient and family.
[2025-03-17] MEDS ORDERED: IPRAT-ALBUT 0.5-3 ML INH (13:24)
--- NOTE | 2025-03-17 15:08 | NUR ---
PT DISCHARGED 1220 WITH INSTRUCTIONS AND COPD INFORMATION. PASSED OXYGEN EVAL AND DOES NOT NEED OXYGEN WITH ACTIVITY OR AT REST. RX TO [facility]. EDUCATED ON PREDNISONE TAPER AND NEBULIZER USE. STAFF ESCORT WHEELCHAIR OUTSIDE TO CAR, MOM WILL DRIVE TP HOME
== END 2025-03-17 14:20 | disposition home or self-care (01) | DRG 189 ==
LOC: ER 10:00 → MEDS 10:01
PROVIDERS: Emergency Medicine; Internal Medicine; Student in an Organized Health Care Education/Training Program; ADMIT Family Medicine
PROC: 5A09357 Assistance with Respiratory Ventilation, Less than 24 Consecutive Hours, Continuous Positive Airway Pressure (ICD-10-PCS; principal; 2025-03-13)
DX: J96.01 Acute respiratory failure with hypoxia (principal); J44.1 Chronic obstructive pulmonary disease with (acute) exacerbation; I50.32 Chronic diastolic (congestive) heart failure; R18.8 Other ascites; G47.33 Obstructive sleep apnea (adult) (pediatric); I25.10 Atherosclerotic heart disease of native coronary artery without angina pectoris; I48.0 Paroxysmal atrial fibrillation; J96.02 Acute respiratory failure with hypercapnia; I27.20 Pulmonary hypertension, unspecified; G47.00 Insomnia, unspecified; G62.9 Polyneuropathy, unspecified; K43.9 Ventral hernia without obstruction or gangrene; K40.90 Unilateral inguinal hernia, without obstruction or gangrene, not specified as recurrent; E78.5 Hyperlipidemia, unspecified; F10.21 Alcohol dependence, in remission; J06.9 Acute upper respiratory infection, unspecified; B97.89 Other viral agents as the cause of diseases classified elsewhere; Z95.1 Presence of aortocoronary bypass graft; Z79.01 Long term (current) use of anticoagulants; Z79.51 Long term (current) use of inhaled steroids; Z79.52 Long term (current) use of systemic steroids; Z79.1 Long term (current) use of non-steroidal anti-inflammatories (NSAID)
CPT/HCPCS: 36415; 71045; 74177; 76705; 80048; 80053; 82803; 83880; 85025; 87637; 93306; 94640; 94660; 94664; 94760; 94761; 94762; 96365; 96375; 99285-25; A9270; G0378; J0456; J2919; J3475; J7050; Q9967